=== PATIENT | female | born 1950 | race Caucasian/White ===

== ENCOUNTER → 2016-11-12 | Outpatient (CLI) | payer OTHER | LOC: BMCIMAGING 09:00 | PROVIDERS: ATTEND Internal Medicine | DX: J43.9 Emphysema, unspecified (principal) ==

== ENCOUNTER → 2016-11-26 | Outpatient (CLI) | payer OTHER | LOC: FIMAGING 11:48 | PROVIDERS: ATTEND Internal Medicine | DX: R91.8 Other nonspecific abnormal finding of lung field (principal) ==

== ENCOUNTER 2017-01-17 13:21 | Emergency (ER) | payer OTHER ==
[2017-01-17] MEDS ORDERED: predniSONE 20 MG TAB PO ONE (15:12)
--- NOTE | 2017-01-17 15:16 | EDPHY ---
H & P Time Seen by Provider: 01/17/17 14:47 HPI/ROS: CHIEF COMPLAINT: Right jaw pain HISTORY OF PRESENT ILLNESS: Patient is a 66-year-old female with a history of mixed connective tissue disorder and Raynaud syndrome who presents emergency department with right jaw pain. Patient stated her pain started 2 nights ago. "I feel like it is dental." The patient complains of pain both her lower and upper right teeth. Her dentist is out of town until Saturday. She denies any dental injury or fracture. Patient has not noticed any rash. She has no swelling or difficulty swallowing. No shortness of breath. No chest pain. No arm discomfort. She has no weakness or numbness. She denies neck pain. No recent trauma. REVIEW OF SYSTEMS: My complete review of systems is negative except as mentioned in the HPI. Past Medical/Surgical History: Includes mixed connective tissue disorder, Raynaud's syndrome Smoking Status: Former smoker Physical Exam: GENERAL: Well-appearing, in no acute distress, alert. HEENT: Eyes normal to inspection, normal pharynx, no signs of dehydration. The patient's face is symmetric. There is no right-sided swelling. No rash. No lesions. Pharynx is normal. Her right TM is normal. She has mild tenderness palpation over her right posterior lower molars. There is no fracture. No mucosal erythema. NECK: No thyromegaly, no lymphadenopathy, supple. RESPIRATORY: Clear to auscultation bilaterally, no rales, rhonchi or wheezing. CVS: Regular rate and rhythm, no rubs, murmurs, or gallops. ABDOMEN: Soft, nontender, nondistended, no organomegaly. BACK: Normal to inspection, no CVA tenderness. SKIN: Normal color, no rash, warm, dry. No pallor. EXTREMITIES: No pedal edema, no calf tenderness, no Homans sign or cords, no joint swelling. NEURO/PSYCH: Alert and oriented x3, normal mood and affect, normal motor sensory exam. No obvious cranial nerve deficit. Constitutional: Initial Vital Signs Temperature (C) 36.5 C 01/17/17 13:25 Heart Rate 83 01/17/17 13:25 Respiratory Rate 16 01/17/17 13:25 Blood Pressure 152/73 H 01/17/17 13:25 O2 Sat (%) 95 01/17/17 13:25 Allergies/Adverse Reactions: azathioprine [From Imuran] Allergy (Mild, Verified 01/17/17 13:27) Rash azathioprine sodium [From Imuran] Allergy (Mild, Verified 01/17/17 13:27) Rash Sulfa (Sulfonamide Antibiotics) Allergy (Mild, Verified 01/17/17 13:27) Rash Home Medications: Medication Instructions Recorded Ergocalciferol [Vitamin D2 (*)] 50,000 unit PO LONGORIA 10/13/15 Mycophenolate Mofetil [Cellcept] 2,000 mg PO DAILY 10/13/15 cycloSPORINE 0.05% [Restasis Opht 1 drop EACHEYE DAILY PRN 10/13/15 Drops(*)] predniSONE [Benjamin] 5 mg PO DAILY 10/13/15 Hydrocodone/Acetaminophen [Vicodin 1 each PO 01/17/17 5-300 mg Tablet] Penicillin V Potassium 500 mg PO TID 10 Days tablet 01/17/17 oxyCODONE/APAP 5/325 [Percocet 1 - 2 tab PO Q4PRN PRN #11 tab 01/17/17 5/325 (*)] predniSONE 20 mg PO DAILY 4 Days tab 01/17/17 Medical Decision Making ED Course/Re-evaluation: In the emergency department I discussed possible etiologies with the patient. I answered all her questions. At this time she will be treated with Percocet for pain control. She was instructed to take Motrin as well. She will be given prednisone to treat for possible trigeminal neuralgia. She will also be given penicillin to treat for possible dental infection. I discussed this at length with the patient. She will follow up with dentist. She was given warnings prior to leaving. She will return with worsening symptoms. Differential Diagnosis: My differential includes but is not limited to dental abscess, dental caries, trigeminal neuralgia, zoster, temporal arteritis, abscess, ACS, dissection Departure - Departure Disposition: Home, Routine, Self-Care Clinical Impression: Jaw pain Condition: Good Instructions: Toothache (ED) Additional Instructions: Return with increasing pain, numbness, weakness, headache, neck pain, rash or any other concerns. You need close follow-up with your dentist. Referrals: Som Guerrero MD [Primary Care Provider] - 2-3 days without fail Prescriptions: oxyCODONE/APAP 5/325 [Percocet 5/325 (*)] 1 - 2 tab PO Q4PRN PRN #11 tab PRN Reason: For Moderate To Severe Pain Penicillin V Potassium 500 mg PO TID 10 Days tablet predniSONE 20 mg PO DAILY 4 Days tab
[2017-01-17 15:30] VITALS: BP 142/74; PULSE 80; RESP 18; TEMP 98.2; O2SAT 96
== END 2017-01-17 15:31 | disposition home or self-care (01) ==
DX: R68.84 Jaw pain (principal); Z87.891 Personal history of nicotine dependence

== ENCOUNTER 2017-01-20 15:54 | Emergency (ER) | payer OTHER ==
--- NOTE | 2017-01-20 16:29 | EDPHY ---
H & P Stated Complaint: tooth pain Time Seen by Provider: 01/20/17 16:26 HPI/ROS: HPI: This is a 66-year-old female who presents with Chief Complaint: Top and bottom right-sided tooth pain Location: Top and bottom right side Quality: Toothache Duration: 3-4 days Signs and Symptoms: no headache, no fever, no jaw swelling, no bleeding, + sensitivity to hot and cold foods, no difficulty swallowing, no numbness, no trismus Timing: Constant Severity: 12/20 Context: Patient reports that Saturday night she woke up from sleep with top and bottom tooth pain. She was seen in this emergency room on 01/17/2017; given prednisone, Percocet, penicillin. She has been taking the medications as prescribed with relief initially. She has a history of connective tissue disease and regular sees a dentist/oral surgeon. Her dentist is currently out of town and she has an appointment on Saturday. Today she felt like how the pain in her bottom right tooth was extending into her jaw and she became concerned. Modifying Factors: See above Comment: ROS: Constitutional: No fever, no chills, no weight loss Eyes: No blurred vision Respiratory: No shortness of breath, no cough Cardiovascular: No chest pain Gastrointestinal: No nausea, no vomiting no diarrhea Genitourinary: No dysuria Extremities: No myalgias Neurologic: No weakness, no numbness Skin: No rashes Hematologic: No bruising, no bleeding Source: Patient Exam Limitations: No limitations - Personal History Current Tetanus/Diphtheria Vaccine: Yes Current Tetanus Diphtheria and Acellular Pertussis (TDAP): Yes Tetanus Vaccine Date: <5 years - Medical/Surgical History Hx Asthma: No Hx Chronic Respiratory Disease: No Hx Diabetes: No Hx Cardiac Disease: No Hx Renal Disease: No Hx Cirrhosis: No Hx Alcoholism: No Hx HIV/AIDS: No Hx Splenectomy or Spleen Trauma: No Other PMH: Raynaud's, mixed connective tissue disease - Social History Smoking Status: Former smoker - Physical Exam Exam: CONSTITUTIONAL: Elderly white female nontoxic in appearance appropriate and pleasant, awake and alert, no obvious distress HEENT: Atraumatic and normocephalic, PERRL, EOMI. Tympanic membranes clear. Oropharynx clear, pain with palpation tooth #3 and #29; no gingival erythema; no jaw swelling; no malocclusion. no exudate and moist pink mucosa. Airway patent. No lymphadenopathy. No meningismus. Cardiovascular: Normal S1/S2, regular rate, regular rhythm, without murmur rub or gallop. PULMONARY/CHEST: Symmetrical and nontender. Clear to auscultation bilaterally Good air movement. No accessory muscle usage. ABDOMEN: Soft, nondistended, nontender, no rebound, no guarding, no peritoneal signs, no masses or organomegaly. No CVAT. EXTREMITIES: 2/2 pulses, no deformities, no clubbing, no cyanosis or edema. NEUROLOGICAL: no focal neuro deficits. GCS 15. SKIN: Warm and dry, no erythema. no rash. Good capillary refill. Constitutional: Initial Vital Signs Temperature (C) 36.6 C 01/20/17 15:56 Heart Rate 72 01/20/17 15:56 Respiratory Rate 16 01/20/17 15:56 Blood Pressure 174/75 H 01/20/17 15:56 O2 Sat (%) 95 01/20/17 15:56 O2 Delivery Mode Room Air Allergies/Adverse Reactions: azathioprine [From Imuran] Allergy (Mild, Verified 01/17/17 13:27) Rash azathioprine sodium [From Imuran] Allergy (Mild, Verified 01/17/17 13:27) Rash Sulfa (Sulfonamide Antibiotics) Allergy (Mild, Verified 01/17/17 13:27) Rash Home Medications: Medication Instructions Recorded Ergocalciferol [Vitamin D2 (*)] 50,000 unit PO LONGORIA 10/13/15 Mycophenolate Mofetil [Cellcept] 2,000 mg PO DAILY 10/13/15 cycloSPORINE 0.05% [Restasis Opht 1 drop EACHEYE DAILY PRN 10/13/15 Drops(*)] predniSONE [Benjamin] 5 mg PO DAILY 10/13/15 Hydrocodone/Acetaminophen [Vicodin 1 each PO 01/17/17 5-300 mg Tablet] Penicillin V Potassium 500 mg PO TID 10 Days tablet 01/17/17 oxyCODONE/APAP 5/325 [Percocet 1 - 2 tab PO Q4PRN PRN #11 tab 01/17/17 5/325 (*)] predniSONE 20 mg PO DAILY 4 Days tab 01/17/17 oxyCODONE/APAP 5/325 [Percocet 1 tab PO Q4H PRN #10 tab 01/20/17 5/325 (*)] Medical Decision Making Procedures: Procedure: dental block Verbal consent was obtained from the patient. The mucobuccal fold of # 3 and # 29 was anesthetized in the usual fashion using 2 ml Bupivicaine for each tooth; total 4 ml anesthetic. There were no deep structures involved. Patient tolerated the procedure well with essentially immediate relief of pain. The procedure was performed by myself. ED Course/Re-evaluation: Labs, CT maxillofacial scan, dental block Creatinine 1.6 Complete relief of pain after local dental block 1758: Called by radiologist no periapical abscess; mass; lymphadenopathy Advised keep dental appointment on Saturday and complete course of antibiotics. Differential Diagnosis: Differential includes but is not limited to periapical abscess, dental carries, nerve injury. - Data Points Laboratory Results: 01/20/17 16:18 POC Hgb 13.3 gm/dL gm/dL (12.6-16.3) POC Hct 39 % % (38-47) POC Sodium 142 mEq/L mEq/L (134-144) POC Potassium 4.4 mEq/L mEq/L (3.3-5.0) POC Chloride 116 mEq/L H mEq/L (97-110) POC BUN 41 mg/dL H mg/dL (7-23) POC Creatinine 1.6 mg/dL H mg/dL (0.6-1.0) POC Glucose 91 mg/dL mg/dL (70-100) Point of Care Test Results: 01/20/17 16:18 POC Sodium 142 POC Potassium 4.4 POC Chloride 116 H POC BUN 41 H POC Creatinine 1.6 H POC Glucose 91 Departure - Departure Disposition: Home, Routine, Self-Care Clinical Impression: Odontalgia Condition: Good Instructions: Toothache (ED) Additional Instructions: Please increase fluid intake and push oral rehydration. Follow up with dentist on Saturday as previously scheduled. Referrals: Som Guerrero MD [Primary Care Provider] - As per Instructions Prescriptions: oxyCODONE/APAP 5/325 [Percocet 5/325 (*)] 1 tab PO Q4H PRN #10 tab PRN Reason: Pain, Severe
[2017-01-20] MEDS ORDERED: IOPAMIDOL (ISOVUE-300) 100 ML BTL ONE (17:05)
[2017-01-20] MEDS ORDERED: OXYCODONE/APAP 5/325MG PREPACK#4 BTL TAKEHOME ONE (18:01)
[2017-01-20 18:36] LABS: ALBUMIN 3.4 g/dL (3.5-5.0); ANION GAP 10 mEq/L (8-16); CALCIUM 9.5 mg/dL (8.5-10.4); CARBON DIOXIDE 16 mEq/l (22-31); CHLORIDE 112 mEq/L (97-110); CREATININE 1.5 mg/dL (0.6-1.0); GLOMERULAR FILTRATION RATE 35; GLUCOSE 81 mg/dL (70-100); POTASSIUM 4.5 mEq/L (3.5-5.2); SODIUM 138 mEq/L (134-144)
[2017-01-20] MEDS ORDERED: NS 1,000 ML IV ONE (18:43)
[2017-01-20 19:56] VITALS: BP 144/77; PULSE 70; RESP 16; TEMP 98.2; O2SAT 94
== END 2017-01-20 19:56 | disposition home or self-care (01) ==
PROC: 3E0337Z Introduction of Electrolytic and Water Balance Substance into Peripheral Vein, Percutaneous Approach (ICD-10-PCS; principal; 2017-01-20)
PROC: 3E0X3BZ Introduction of Anesthetic Agent into Cranial Nerves, Percutaneous Approach (ICD-10-PCS; principal; 2017-01-20)
DX: K08.89 Other specified disorders of teeth and supporting structures (principal); E86.9 Volume depletion, unspecified; Z87.891 Personal history of nicotine dependence
CPT/HCPCS: 82947-QW; Q9967

== ENCOUNTER 2017-01-21 11:35 | Emergency (ER) | payer OTHER ==
--- NOTE | 2017-01-21 11:42 | EDPHY ---
H & P Stated Complaint: 3rd visit in a wk;"antibx not working" Time Seen by Provider: 01/21/17 11:41 - Personal History Current Tetanus Diphtheria and Acellular Pertussis (TDAP): Yes Tetanus Vaccine Date: <5 years - Medical/Surgical History Hx Asthma: No Hx Chronic Respiratory Disease: No Hx Diabetes: No Hx Cardiac Disease: No Hx Renal Disease: No Hx Cirrhosis: No Hx Alcoholism: No Hx HIV/AIDS: No Hx Splenectomy or Spleen Trauma: No Other PMH: Raynaud's, mixed connective tissue disease - Social History Smoking Status: Former smoker Constitutional: Initial Vital Signs Temperature (C) 36.5 C 01/21/17 11:38 Heart Rate 88 01/21/17 11:38 Respiratory Rate 18 01/21/17 11:38 Blood Pressure 165/105 H 01/21/17 11:38 O2 Sat (%) 95 01/21/17 11:38 O2 Delivery Mode Room Air Allergies/Adverse Reactions: azathioprine [From Imuran] Allergy (Mild, Verified 01/21/17 11:37) Rash azathioprine sodium [From Imuran] Allergy (Mild, Verified 01/21/17 11:37) Rash Sulfa (Sulfonamide Antibiotics) Allergy (Mild, Verified 01/21/17 11:37) Rash Home Medications: Medication Instructions Recorded Ergocalciferol [Vitamin D2 (*)] 50,000 unit PO LONGORIA 10/13/15 Mycophenolate Mofetil [Cellcept] 2,000 mg PO DAILY 10/13/15 cycloSPORINE 0.05% [Restasis Opht 1 drop EACHEYE DAILY PRN 10/13/15 Drops(*)] predniSONE [Benjamin] 5 mg PO DAILY 10/13/15 Hydrocodone/Acetaminophen [Vicodin 1 each PO 01/17/17 5-300 mg Tablet] Penicillin V Potassium 500 mg PO TID 10 Days tablet 01/17/17 oxyCODONE/APAP 5/325 [Percocet 1 - 2 tab PO Q4PRN PRN #11 tab 01/17/17 5/325 (*)] predniSONE 20 mg PO DAILY 4 Days tab 01/17/17 oxyCODONE/APAP 5/325 [Percocet 1 tab PO Q4H PRN #10 tab 01/20/17 5/325 (*)] Amoxicillin/Clavulanate Pot 875 mg PO BID #14 tab 01/21/17 [Augmentin 875 MG TAB (*)] Ibuprofen [Motrin] 800 mg PO Q8 #20 tab 01/21/17 oxyCODONE IR [Oxycodone Ir (*)] 5 - 10 mg PO Q6 PRN #20 tab 01/21/17 Medical Decision Making ED Course/Re-evaluation: CHIEF COMPLAINT: Toothache HISTORY OF PRESENT ILLNESS: The patient is a 66-year-old female who returns to the ED with continued right sided tooth pain and acute jaw swelling. The patient was seen here 01/17/17 for this pain. She was started on Penicillin and received Oxycodone for pain. The patient was seen here yesterday for the same complaint. She had CT maxillofacial that was negative for abscess. Patient continues to take Oxycodone for pain treatment. However, this morning she noticed increased swelling of her jaw with continued tooth pain. REVIEW OF SYSTEMS: A 10 point review of systems was performed and is negative with the exception of the elements mentioned in the history of present illness. PHYSICAL EXAM: HR, BP, O2 Sat, RR. Temp noted General Appearance: Alert, well hydrated, appropriate, and non-toxic appearing. Head: Atraumatic without scalp tenderness or obvious injury Eyes: Pupils equal, round, reactive to light and accommodation, EOMI, no trauma , no injection. Ears: Clear bilaterally, no perforation, normal landmarks Nose: Atraumatic, no rhinorrhea, clear. Throat: There is no erythema or exudates, no lesions, normal tonsils, mucus membranes moist. Neck: Supple, 2+ carotid upstroke, nontender, no lymphadenopathy. Respiratory: No retractions, no distress, no wheezes, and no accessory muscle use. Lungs are clear to auscultation bilaterally. Cardiovascular: Regular rate and rhythm, no murmurs, rubs, or gallops. Bilateral carotid, radial, dorsalis pedis, and posterior tibial pulses intact. Good capillary refill all extremities. Gastrointestinal: Abdomen is soft, nontender, non-distended, no masses, no rebound, no guarding, no peritoneal signs. Musculoskeletal: Normal active ROM of all extremities, atraumatic. Neurological: Alert, appropriate, and interactive. The patient has normal DTRs and non-focal cranial nerves, motor, sensory, and cerebellar exam. Skin: No rashes, good turgor, no nodules on palpation. Past medical history: Raynaud's, Mixed connective tissue disease Past surgical history: Denies Family history: Noncontributory Social history: at bedside. DIFFERENTIAL DIAGNOSIS: The differential diagnosis for the patient's toothache includes but is not limited to dental abscess, dental caries, trigeminal neuralgia, zoster, temporal arteritis, abscess, ACS, dissection. MEDICAL DECISION MAKING: Patient I spoke to the patient's dentist, Dr. Hart. She will remove the tooth when the inflammation and infection have improved. IV was established. Patient received 900mg Clindamycin IV, 10mg Decadron IV, and 30mg Ketoralac IV. Plan to discharge patient home with Oxy IR, 800mg Motrin, and Clindamycin. Patient was instructed to followup with her Dentist when she finishes antibiotic treatment. - Data Points Medications Given: Discontinued Medications Dexamethasone (Decadron Injection) 10 mg IVP EDNOW ONE Stop: 01/21/17 11:53 Last Admin: 01/21/17 12:10 Dose: 10 mg Clindamycin Phosphate/Dextrose (Cleocin 900 Mg (Premix)) 50 mls @ 100 mls/hr IV EDNOW ONE PRN Reason: Protocol Stop: 01/21/17 12:19 Last Admin: 01/21/17 12:09 Dose: 50 mls Ketorolac Tromethamine (Toradol) 30 mg IVP EDNOW ONE Stop: 01/21/17 11:53 Last Admin: 01/21/17 12:10 Dose: 30 mg Departure - Departure Disposition: Home, Routine, Self-Care Clinical Impression: Toothache Condition: Good Instructions: Toothache (ED) Additional Instructions: Take full course of antibiotics as directed. Take Oxycodone as prescribed for severe pain. Followup with your dentist after completion of antibiotics. Referrals: Som Guerrero MD [Primary Care Provider] - As per Instructions Prescriptions: Amoxicillin/Clavulanate Pot [Augmentin 875 MG TAB (*)] 875 mg PO BID #14 tab Ibuprofen [Motrin] 800 mg PO Q8 #20 tab oxyCODONE IR [Oxycodone Ir (*)] 5 - 10 mg PO Q6 PRN #20 tab PRN Reason: Pain, Severe Report Scribed for: Juan Levin Report Scribed by: Lary Amato Date of Report: 01/21/17 Time of Report: 12:03
[2017-01-21] MEDS ORDERED: CLINDAMYCIN 900 MG/DEXTROSE 50 ML IV ONE (11:50)
[2017-01-21] MEDS ORDERED: KETOROLAC 30 MG/1 ML SDV IVP ONE (11:52)
[2017-01-21] MEDS ORDERED: DEXAMETHASONE 10 MG/ML VIAL IVP ONE (11:52)
[2017-01-21 12:33] VITALS: BP 126/65; PULSE 67; RESP 16; TEMP 97.9; O2SAT 97
== END 2017-01-21 12:44 | disposition home or self-care (01) ==
DX: K08.89 Other specified disorders of teeth and supporting structures (principal); Z87.891 Personal history of nicotine dependence
CPT/HCPCS: 96365; J1100; J1885

== ENCOUNTER 2017-01-23 21:00 | Inpatient (IN) | payer OTHER ==
[2017-01-23] MEDS ORDERED: NS 1,000 ML IV ONE (21:55)
--- NOTE | 2017-01-23 21:56 | EDPHY ---
H & P Stated Complaint: right sided jaw swelling Time Seen by Provider: 01/23/17 21:43 HPI/ROS: Chief Complaint: Jaw pain and swelling HPI: 66-year-old woman who is been having over a week of right-sided jaw pain and swelling. She has been seen in the emergency department by dental multiple times for this. Patient had a CT scan on the which did not show evidence of an abscess at that time. Patient was initially started on penicillin but was switched to clindamycin 2 days ago. She received an IV dose of clindamycin has been taking it orally. Patient's follow up with her dentist that day with the plan to from root canal after the swelling goes down. Patient states that over the course of the last 2 days the swelling has gotten worse. The swelling is crossing the midline of her jaw and is increasing swelling beneath her the jaws well. Has some pain with opening. She has not had any relief with her oral pain medications at home. Some pain with swallowing on the right. No difficulty breathing. ROS: 10 point Review of Systems is negative except as noted in the HPI. PMH: Mixed connective tissue disease Social History: No smoking, no alcohol, no recreational drug use Family History: non-contributory Physical Exam: Gen: Awake, Alert, No Distress HEENT: Nose: no rhinorrhea Eyes: PERRLA, EOMI Mouth: Moist mucosa she has significant submandibular swelling on the right which crosses the midline. There is no fluctuance. It does not extend to the neck. Intraorally there is noted swelling at the base of her tongue with perhaps some mild fluctuance. She has no trismus. Uvula is midline. Oropharynx appears normal. Neck: Supple, no JVD, no swelling Chest: nontender, no respiratory distress Heart: Normal pulses Abd: Normal inspection Ext: no edema, non-tender Skin: no rash Neuro: CN II-XII intact, Sensation grossly intact, Strength 5/5 in bilateral upper and lower extremities - Personal History Current Tetanus Diphtheria and Acellular Pertussis (TDAP): Yes Tetanus Vaccine Date: <5 years - Medical/Surgical History Hx Asthma: No Hx Chronic Respiratory Disease: No Hx Diabetes: No Hx Cardiac Disease: No Hx Renal Disease: No Hx Cirrhosis: No Hx Alcoholism: No Hx HIV/AIDS: No Hx Splenectomy or Spleen Trauma: No Other PMH: Raynaud's, mixed connective tissue disease - Social History Smoking Status: Former smoker Constitutional: Initial Vital Signs Temperature (C) 37 C 01/23/17 21:04 Heart Rate 60 01/23/17 21:04 Respiratory Rate 16 01/23/17 21:04 Blood Pressure 99/60 L 01/23/17 21:04 O2 Sat (%) 97 01/23/17 21:04 O2 Delivery Mode Room Air Allergies/Adverse Reactions: azathioprine [From Imuran] Allergy (Mild, Verified 01/21/17 11:37) Rash azathioprine sodium [From Imuran] Allergy (Mild, Verified 01/21/17 11:37) Rash Sulfa (Sulfonamide Antibiotics) Allergy (Mild, Verified 01/21/17 11:37) Rash Home Medications: Medication Instructions Recorded Ergocalciferol [Vitamin D2 (*)] 50,000 unit PO LONGORIA 10/13/15 Mycophenolate Mofetil [Cellcept] 2,000 mg PO DAILY 10/13/15 cycloSPORINE 0.05% [Restasis Opht 1 drop EACHEYE DAILY PRN 10/13/15 Drops(*)] predniSONE [Benjamin] 5 mg PO DAILY 10/13/15 Hydrocodone/Acetaminophen [Vicodin 1 each PO 01/17/17 5-300 mg Tablet] Penicillin V Potassium 500 mg PO TID 10 Days tablet 01/17/17 oxyCODONE/APAP 5/325 [Percocet 1 - 2 tab PO Q4PRN PRN #11 tab 01/17/17 5/325 (*)] predniSONE 20 mg PO DAILY 4 Days tab 01/17/17 oxyCODONE/APAP 5/325 [Percocet 1 tab PO Q4H PRN #10 tab 01/20/17 5/325 (*)] Amoxicillin/Clavulanate Pot 875 mg PO BID #14 tab 01/21/17 [Augmentin 875 MG TAB (*)] Clindamycin 150 mg PO Q8 #30 cap 01/21/17 Ibuprofen [Motrin] 800 mg PO Q8 #20 tab 01/21/17 oxyCODONE IR [Oxycodone Ir (*)] 5 - 10 mg PO Q6 PRN #20 tab 01/21/17 Medical Decision Making - Diagnostics Imaging Results: Imaging Impressions Face CT 01/23/17 22:41 Impression: 1. Subperiosteal abscess along the inner cortex of the right mandibular body insinuates into the right geniohyoid hyoid muscle anteriorly. 2. No involvement of the deep spaces of the neck or compromise of the airway. 3. No evidence of osteomyelitis. Findings discussed with Emergency Department physician, Jakob Noriega MD at 01/23/2017 23:45. CT scan shows a subperiosteal submandibular abscess measuring 0.6 cm x 1.5 cm x 2 cm. Scan interpreted by Dr. Lynn. Imaging: Discussed imaging studies w/ call center operations manager Radiologist ED Course/Re-evaluation: CT scan reveals submandibular abscess. There is no airway involvement at this time. I have discussed with Dr. Delarosa, oral surgery. She is requesting the patient be admitted to medicine service. She will plan on surgical drainage in the morning. She is requesting IV Unasyn at this time. Case discussed with Dr. Bergman. He will admit to his service for further care. - Data Points Laboratory Results: Laboratory Results 01/23/17 22:10 01/23/17 22:10 01/23/17 01/23/17 22:10 22:10 WBC 15.14 10^3/uL H 10^3/uL (3.80-9.50) RBC 4.38 10^6/uL 10^6/uL (4.18-5.33) Hgb 13.2 g/dL g/dL (12.6-16.3) Hct 40.2 % % (38.0-47.0) MCV 91.8 fL fL (81.5-99.8) MCH 30.1 pg pg (27.9-34.1) MCHC 32.8 g/dL g/dL (32.4-36.7) RDW 14.8 % % (11.5-15.2) Plt Count 165 10^3/uL 10^3/uL (150-400) MPV 10.4 fL fL (8.7-11.7) Neut % (Auto) 89.7 % H % (39.3-74.2) Lymph % (Auto) 3.8 % L % (15.0-45.0) Wagoner % (Auto) 4.8 % % (4.5-13.0) Eos % (Auto) 0.3 % L % (0.6-7.6) Baso % (Auto) 0.3 % % (0.3-1.7) Nucleat RBC Rel Count 0.0 % % (0.0-0.2) Absolute Neuts (auto) 13.59 10^3/uL H 10^3/uL (1.70-6.50) Absolute Lymphs (auto) 0.57 10^3/uL L 10^3/uL (1.00-3.00) Absolute Monos (auto) 0.73 10^3/uL 10^3/uL (0.30-0.80) Absolute Eos (auto) 0.05 10^3/uL 10^3/uL (0.03-0.40) Absolute Basos (auto) 0.04 10^3/uL 10^3/uL (0.02-0.10) Absolute Nucleated RBC 0.00 10^3/uL 10^3/uL (0-0.01) Immature Gran % 1.1 % % (0.0-1.1) Immature Gran # 0.16 10^3/uL H 10^3/uL (0.00-0.10) Sodium 135 mEq/L mEq/L (134-144) Potassium 3.8 mEq/L mEq/L (3.5-5.2) Chloride 109 mEq/L mEq/L (97-110) Carbon Dioxide 12 mEq/l L mEq/l (22-31) Anion Gap 14 mEq/L mEq/L (8-16) BUN 36 mg/dL H mg/dL (7-23) Creatinine 1.7 mg/dL H mg/dL (0.6-1.0) Estimated GFR 30 Glucose 77 mg/dL mg/dL (70-100) Calcium 10.2 mg/dL mg/dL (8.5-10.4) Total Bilirubin 0.9 mg/dL mg/dL (0.1-1.4) AST 42 IU/L IU/L (14-46) ALT 49 IU/L IU/L (9-52) Alkaline Phosphatase 175 IU/L H IU/L (38-126) Total Protein 7.8 g/dL g/dL (6.3-8.2) Albumin 3.7 g/dL g/dL (3.5-5.0) Medications Given: Discontinued Medications Sodium Chloride (Ns) 1,000 mls @ 0 mls/hr IV ONCE ONE; Wide Open PRN Reason: Protocol Stop: 01/23/17 21:56 Last Admin: 01/23/17 22:05 Dose: 1,000 mls Morphine Sulfate (Morphine) 4 mg IVP ONCE ONE Stop: 01/23/17 22:18 Last Admin: 01/24/17 00:11 Dose: 4 mg Departure - Departure Disposition: [facility] Inpatient Acute Clinical Impression: Submandibular abscess Condition: Fair Referrals: Som Guerrero MD [Primary Care Provider] - As per Instructions
[2017-01-23 22:28] LABS: % IMMATURE GRANULYOCYTES 1.1 % (0.0-1.1); ABSOLUTE IMMATURE GRANULOCYTES 0.16 10^3/uL (0.00-0.10); ADD DIFF? NO; ADD MORPH? NO; ADD SCAN? NO; ATYPICAL LYMPHOCYTE FLAG 0 (0-99); FRAGMENT RBC FLAG 0 (0-99); HEMATOCRIT 40.2 % (38.0-47.0); HEMOGLOBIN 13.2 g/dL (12.6-16.3); LEFT SHIFT FLG 20 (0-99); LIPEMIA HEMOLYSIS FLAG 80 (0-99); MEAN CELL HEMOGLOBIN 30.1 pg (27.9-34.1); MEAN CELL HEMOGLOBIN CONCENTR. 32.8 g/dL (32.4-36.7); MEAN CELL VOLUME 91.8 fL (81.5-99.8); MEAN PLATELET VOLUME 10.4 fL (8.7-11.7); PLATELET CLUMPS FLAG 10 (0-99); PLATELET COUNT 165 10^3/uL (150-400); RED BLOOD CELL COUNT 4.38 10^6/uL (4.18-5.33); RED CELL DISTRIBUTION WIDTH 14.8 % (11.5-15.2)
[2017-01-23 22:39] LABS: ALANINE AMINOTRANSFERASE 49 IU/L (9-52); ALBUMIN 3.7 g/dL (3.5-5.0); ALKALINE PHOSPHATASE 175 IU/L (38-126); ANION GAP 14 mEq/L (8-16); ASPARTATE AMINOTRANSFERASE 42 IU/L (14-46); BILIRUBIN,TOTAL 0.9 mg/dL (0.1-1.4); CALCIUM 10.2 mg/dL (8.5-10.4); CARBON DIOXIDE 12 mEq/l (22-31); CHLORIDE 109 mEq/L (97-110); CREATININE 1.7 mg/dL (0.6-1.0); GLOMERULAR FILTRATION RATE 30; GLUCOSE 77 mg/dL (70-100); POTASSIUM 3.8 mEq/L (3.5-5.2); SODIUM 135 mEq/L (134-144); TOTAL PROTEIN 7.8 g/dL (6.3-8.2)
[2017-01-23] MEDS ORDERED: IOPAMIDOL (ISOVUE-300) 100 ML BTL ONE (22:57)
[2017-01-23] MEDS ORDERED: AMPICILLIN/SULBACTAM 3 GM in NS 100 ML IV ONE (23:52)
[2017-01-24] MEDS ORDERED: ACETAMINOPHEN 325 MG TAB PO PRN (00:41)
[2017-01-24] MEDS ORDERED: ONDANSETRON DISINTEGRATING 4 MG TAB PO PRN (00:41)
[2017-01-24] MEDS ORDERED: ONDANSETRON 4 MG/2 ML VIAL IVP PRN ×2 (00:41→15:07)
--- NOTE | 2017-01-24 00:52 | PDGENHP ---
History and Physical - Chief Complaint Jaw pain - History of Present Illness 66 yo F w/ hx of mixed CTD presents with 1 week of lower mandibular pain. Patient first noticed pain in her right mandible about 1 week ago. She has been seen in the ED a few times for this and has received PO abx (Clindamycin, Augmentin) without improvement. She returned to the ED today for worsening pain and chills. At the time of my evaluation patient was in severe pain and exhibiting rigors. History Information - Allergies/Home Medication List Allergies/Adverse Reactions: azathioprine [From Imuran] Allergy (Mild, Verified 01/21/17 11:37) Rash azathioprine sodium [From Imuran] Allergy (Mild, Verified 01/21/17 11:37) Rash Sulfa (Sulfonamide Antibiotics) Allergy (Mild, Verified 01/21/17 11:37) Rash Home Medications: Ergocalciferol [Vitamin D2 (*)] 50,000 unit PO LONGORIA 10/13/15 [Last Taken 10/16/15] Mycophenolate Mofetil [Cellcept] 2,000 mg PO DAILY 10/13/15 [Last Taken 10/19/15 ] cycloSPORINE 0.05% [Restasis Opht Drops(*)] 1 drop EACHEYE DAILY PRN 10/13/15 [ Last Taken Unknown] predniSONE [Benjamin] 5 mg PO DAILY 10/13/15 [Last Taken 10/20/15] Hydrocodone/Acetaminophen [Vicodin 5-300 mg Tablet] 1 each PO 01/17/17 [Last Taken Unknown] I have personally reviewed and updated: family history, medical history - Past Medical History Additional medical history: Mixed CTD - Family History Positive for: cancer - Social History Smoking Status: Former smoker Drug Use: None Review of Systems Review of Systems: ROS: 10pt was reviewed & negative except for what was stated in HPI & below Physical Exam Physical Exam: Temp Pulse Resp BP Pulse Ox 37 C 60 16 99/60 L 97 01/23/17 21:04 01/23/17 21:04 01/23/17 21:04 01/23/17 21:04 01/23/17 21:04 Constitutional: appears nourished, uncomfortable Eyes: PERRL, EOMI Ears, Nose, Mouth, Throat: moist mucous membranes, other (Mild swelling overlying R sub-mandibular area) Cardiovascular: regular rate and rhythym, no murmur, rub, or gallop Respiratory: no respiratory distress, clear to auscultation Gastrointestinal: normoactive bowel sounds, soft, non-tender abdomen Skin: warm, normal color Musculoskeletal: full muscle strength, no muscle tenderness Neurologic: AAOx3, CN II-XII Intact Psychiatric: interacting appropriately, not anxious Lab Data & Imaging Review 01/23/17 22:10 01/23/17 22:10 WBC 15.14 10^3/uL (3.80-9.50) H 01/23/17 22:10 RBC 4.38 10^6/uL (4.18-5.33) 01/23/17 22:10 Hgb 13.2 g/dL (12.6-16.3) 01/23/17 22:10 Hct 40.2 % (38.0-47.0) 01/23/17 22:10 MCV 91.8 fL (81.5-99.8) 01/23/17 22:10 MCH 30.1 pg (27.9-34.1) 01/23/17 22:10 MCHC 32.8 g/dL (32.4-36.7) 01/23/17 22:10 RDW 14.8 % (11.5-15.2) 01/23/17 22:10 Plt Count 165 10^3/uL (150-400) 01/23/17 22:10 MPV 10.4 fL (8.7-11.7) 01/23/17 22:10 Neut % (Auto) 89.7 % (39.3-74.2) H 01/23/17 22:10 Lymph % (Auto) 3.8 % (15.0-45.0) L 01/23/17 22:10 Guadalupe % (Auto) 4.8 % (4.5-13.0) 01/23/17 22:10 Eos % (Auto) 0.3 % (0.6-7.6) L 01/23/17 22:10 Baso % (Auto) 0.3 % (0.3-1.7) 01/23/17 22:10 Nucleat RBC Rel Count 0.0 % (0.0-0.2) 01/23/17 22:10 Absolute Neuts (auto) 13.59 10^3/uL (1.70-6.50) H 01/23/17 22:10 Absolute Lymphs (auto) 0.57 10^3/uL (1.00-3.00) L 01/23/17 22:10 Absolute Monos (auto) 0.73 10^3/uL (0.30-0.80) 01/23/17 22:10 Absolute Eos (auto) 0.05 10^3/uL (0.03-0.40) 01/23/17 22:10 Absolute Basos (auto) 0.04 10^3/uL (0.02-0.10) 01/23/17 22:10 Absolute Nucleated RBC 0.00 10^3/uL (0-0.01) 01/23/17 22:10 Immature Gran % 1.1 % (0.0-1.1) 01/23/17 22:10 Immature Gran # 0.16 10^3/uL (0.00-0.10) H 01/23/17 22:10 Sodium 135 mEq/L (134-144) 01/23/17 22:10 Potassium 3.8 mEq/L (3.5-5.2) 01/23/17 22:10 Chloride 109 mEq/L (97-110) 01/23/17 22:10 Carbon Dioxide 12 mEq/l (22-31) L 01/23/17 22:10 Anion Gap 14 mEq/L (8-16) 01/23/17 22:10 BUN 36 mg/dL (7-23) H 01/23/17 22:10 Creatinine 1.7 mg/dL (0.6-1.0) H 01/23/17 22:10 Estimated GFR 30 01/23/17 22:10 Glucose 77 mg/dL (70-100) 01/23/17 22:10 Calcium 10.2 mg/dL (8.5-10.4) 01/23/17 22:10 Total Bilirubin 0.9 mg/dL (0.1-1.4) 01/23/17 22:10 AST 42 IU/L (14-46) 01/23/17 22:10 ALT 49 IU/L (9-52) 01/23/17 22:10 Alkaline Phosphatase 175 IU/L (38-126) H 01/23/17 22:10 Total Protein 7.8 g/dL (6.3-8.2) 01/23/17 22:10 Albumin 3.7 g/dL (3.5-5.0) 01/23/17 22:10 Imaging Review: CT face with sub-mandibular abscess, no involvement of deep spaces or airway. Assessment & Plan Assessment: 66 yo F w/ mixed-CTD presents with sub-mandibular abscess. Plan: 1. Mandibular abscess - Likely originating from tooth infection. Progressing despite oral antibiotics and therefore requiring admission of IV antibiotics and drainage. - Oral surgery consulted, will plan for I&D tomorrow; maintain NPO - Unasyn IV 3g q8h (adjusted interval for renal dysfunction) - Oxycodone and morphine PRN for pain control 2. Mixed-CTD - Takes Cellcept and prednisone 2m qD for this. Noting such low dose (no recent hx of high dose steroids), no need for stress dosing at this time. 3. CKD - Cr 1.7, very near baseline of ~1.5. Avoid nephrotoxins and renally dose medications. Diet - NPO Ppx - SCDs Code - Full Dispo - Admit to inpatient status noting need for I&D, IV abx, and pain control
--- NOTE | 2017-01-24 00:56 | CPEKG ---
Heart Rate: 122 RR Interval: 492 P-R Interval: 156 QRSD Interval: 70 QT Interval: 256 QTC Interval: 365 P Magazine: 64 QRS Magazine: 37 T Wave Magazine: -69 EKG Severity - BORDERLINE ECG - EKG Impression: SINUS TACHYCARDIA EKG Impression: PROBABLE LEFT ATRIAL ABNORMALITY Electronically Signed By: Jakob Noriega 24-Jan-2017 05:25:48
[2017-01-24] MEDS ORDERED: NS 1,000 ML IV ONE ×3 (01:15→10:30)
[2017-01-24] MEDS: oxyCODONE IR 5 MG TAB PO PRN (01:16)
[2017-01-24] MEDS: AMPICILLIN/SULBACTAM 3 GM in NS 100 ML IV SCH ×3 (05:23→22:15)
[2017-01-24 05:54] LABS: % IMMATURE GRANULYOCYTES 1.4 % (0.0-1.1); ABSOLUTE IMMATURE GRANULOCYTES 0.27 10^3/uL (0.00-0.10); ADD DIFF? NO; ADD MORPH? NO; ADD SCAN? YES; ATYPICAL LYMPHOCYTE FLAG 0 (0-99); FRAGMENT RBC FLAG 0 (0-99); HEMATOCRIT 30.1 % (38.0-47.0); HEMOGLOBIN 9.9 g/dL (12.6-16.3); LEFT SHIFT FLG 220 (0-99); LIPEMIA HEMOLYSIS FLAG 80 (0-99); MEAN CELL HEMOGLOBIN 30.4 pg (27.9-34.1); MEAN CELL HEMOGLOBIN CONCENTR. 32.9 g/dL (32.4-36.7); MEAN CELL VOLUME 92.3 fL (81.5-99.8); MEAN PLATELET VOLUME 10.8 fL (8.7-11.7); PLATELET CLUMPS FLAG 0 (0-99); PLATELET COUNT 130 10^3/uL (150-400); RED BLOOD CELL COUNT 3.26 10^6/uL (4.18-5.33); RED CELL DISTRIBUTION WIDTH 14.9 % (11.5-15.2)
[2017-01-24 06:02] LABS: ANION GAP 13 mEq/L (8-16); CALCIUM 8.1 mg/dL (8.5-10.4); CARBON DIOXIDE 10 mEq/l (22-31); CHLORIDE 118 mEq/L (97-110); CREATININE 1.6 mg/dL (0.6-1.0); GLOMERULAR FILTRATION RATE 32; GLUCOSE 64 mg/dL (70-100); POTASSIUM 3.5 mEq/L (3.5-5.2); SODIUM 141 mEq/L (134-144)
[2017-01-24] MEDS ORDERED: D50W 25 GM/50 ML SYR IVP PRN (06:14)
[2017-01-24 06:24] LABS: SCAN NEGATIVE
--- NOTE | 2017-01-24 09:47 | GCON ---
[f rep st] DIRECTOR OF FINANCIAL REPORTING CONSULTATION DATE OF CONSULTATION: 01/24/2017 HISTORY OF PRESENT ILLNESS: The patient is a 66-year-old female who has presented to the ED several times over the last week with ongoing right lower jaw pain and swelling. In between her visits her dentist recommended a root canal on tooth #30 after the infection cleared. She has been on PCN and clindamycin. Last night she presented again with worsening swelling; a scan demonstrated a submandibular abscess. OMFS was consulted for surgical intervention. PAST MEDICAL HISTORY: Mixed connective tissue disease. MEDICATIONS: Vitamin D2, MMF, cyclosporine eye drops, prednisone 5 mg daily, and hydrocodone p.r.n. pain. ALLERGIES: Azathioprine and sulfa. FAMILY HISTORY: Brother recently from leukemia, parents from lung cancer. SURGICAL HISTORY: Appendectomy at age 16. No anesthetic complications. SOCIAL HISTORY: Denies tobacco, alcohol, and illicit drug use. Lives in [place] with her . REVIEW OF SYSTEMS: A 10-point review of systems was reviewed and was significant for chills, fever, and lower back pain x 1 day. PHYSICAL EXAMINATION: VITAL SIGNS: BP 82/47, HR 85, RR 17, O2 sat 97% on 2L O2 via nasal cannula, temperature 36.6. GENERAL: Patient was resting comfortably in bed. No acute distress. HEENT: Moderate right lower facial and submandibular induration and edema, moderately erythematous with mild tenderness to palpation. Induration and edema measures approximately 6.5 cm. DOROTEO is 30 mm with mild discomfort. Patient has partial edentulism with right mandibular vestibular edema, mild right floor of mouth elevation. Mallampati 2. Percussion tenderness to #29 and #30. No dental mobility. No mucosal or gingival lesions otherwise noted, CN II-XII grossly intact. LABORATORY DATA: Leukocytosis to 19. CT: Fluid collection in the right submandibular region. Dental periapical film submitted to Dr. Delarosa's office from Dr. Lai's (dentist) demonstrates a radiolucency with #30 mesial root and furcation involvement. ASSESSMENT AND PLAN: Odontogenic infection #30 with an associated right submandibular space abscess. Recommend extraction of #30, I&D, cultures, placement of intraoral/extraoral drains under GA Discussed findings with pt, questions addressed NPO/MIVF today; OR case scheduled for 2:30 pm today. continue Unasyn analgesics prn likely pt will remain admitted over the weekend /[id number]/MODL MTDD
[2017-01-24] MEDS ORDERED: HYDROCORTISONE 100 MG/2 ML VIAL IVP ONE (10:14)
[2017-01-24] MEDS ORDERED: NS 1,000 ML IV SCH (10:30)
[2017-01-24] MEDS ORDERED: PILOCARPINE HCL 5 MG TAB PO PRN (11:20)
[2017-01-24] MEDS ORDERED: IBUPROFEN 800 MG TAB PO PRN (11:20)
--- NOTE | 2017-01-24 12:47 | GCON ---
[f rep st] CONSULTATION INFECTIOUS DISEASES CONSULTATION DATE OF CONSULTATION: 01/24/2017 REFERRING PHYSICIAN: Sarah Clark NP REASON FOR CONSULTATION: Submandibular abscess. HISTORY OF PRESENT ILLNESS: Patient is a 66-year-old female with a past medical history of mixed con nective tissue disease including Sjogren's disease and scleroderma features, who I am asked to see in consultation for a right-sided submandibular abscess. Patient describes developing dental pain appr oximately 2 weeks ago in the lower right jaw. This subsequently became more prominent and she was se en in the emergency department beginning on 01/17/2017. At that point in time, she was started on pe nicillin with plans for outpatient followup with her dentist. Followup was complicated by her dentis t being out of town. She subsequently returned to the emergency department on 01/20/2017 with persis tent symptoms, at which point in time a facial CT was performed. This did not show evidence of subma ndibular abscess. Physical examination at that point did not note any jaw swelling. She was treated with a dental block and continued on penicillin. However, she continued to be symptomatic and devel oped progressive pain with associated erythema and swelling below her jaw. This prompted repeat eval uation in the emergency department, at which point in time she was given clindamycin, Decadron, and T oradol IV. Her antibiotic therapy was changed to clindamycin. Plans were to follow up with her dent ist for definitive management. In the interim, the patient did not have improvement despite antibiot ic therapy and had continued pain, prompting [facility] in [facility] a repeat CT scan was performed which showed evidence of a submandibular abscess. This measured 2 cm x 0.6 cm x 1.5 cm. Deep spaces were noted to be preserved with no airway compromi se. Patient has been started empirically on Unasyn. She was seen by Oral Surgery earlier today with plans for dental extraction and abscess drainage later today. Patient did have fever to 39.6 after admission, with associated rigors. She does not describe having fever and chills prior to this. Blo od cultures have been obtained and are currently pending. Patient does not note any difficulty openi ng her mouth beyond what is associated with her typical scleroderma features. She does have chronic dry mouth. She has not noted any change in her voice, difficulty with tongue movement or tongue swel ling. She now does note that she has erythema and swelling over the entirety of her lower jaw. She has not noted any pain in her upper chest. Given the above findings, I am now asked to assist in her ongoing management. PAST MEDICAL HISTORY: Mixed connective tissue disease manifest by Sjogren's and scleroderma-like fea tures as well as autoimmune hepatitis, vitamin D deficiency, chronic renal insufficiency. PAST SURGICAL HISTORY: Appendectomy. CURRENT MEDICATIONS: Unasyn 3 g IV q.8 hours, vitamin D2 50,000 units p.o. weekly, CellCept 2000 mg p.o. daily, prednisone 2.5 mg p.o. daily, pilocarpine 5 mg p.o. t.i.d., OxyIR and Percocet as needed for pain. ALLERGIES: Sulfonamides associated with rash; azathioprine; another antibiotic which she cannot mitchell mber currently, associated with GI symptoms. SOCIAL HISTORY: Patient does not smoke or drink significant alcohol. No drug use history. FAMILY HISTORY: Parents of lung cancer associated with smoking, brother recently of leukem ia. REVIEW OF SYSTEMS: Outside that noted in the HPI, the remainder of the 10-system review is unremarka ble; patient has had hypotension since admission with plans to initiate stress dose steroids. Unless otherwise noted, the remainder of 10-system review is unremarkable. PHYSICAL EXAMINATION: VITAL SIGNS: Temperature maximum 39.6, temperature current 36.8, heart rate 7 6, respiratory rate 18, blood pressure 87/43. GENERAL: Patient is a thin female in no acute distres s. She appears nontoxic. HEENT: There is no scleral icterus, conjunctival injection, or conjunctiv al petechiae. The oropharynx shows scleroderma-type facies. There is no trismus. There is no nasal discharge. There is no tenderness over the sinuses. There is erythema, edema and tenderness over t he right mandibular region extending into the submental region with an area of palpable fluctuance be low the jaw. Patient's tongue moves freely and there is no tongue edema. NECK: Supple without palp able lymphadenopathy. Patient does have erythema on the right side of the neck extending into the up per chest and some erythema over the left side of the anterior neck. CHEST: Clear to auscultation b ilaterally without adventitious sounds. The respiratory effort is normal. CARDIOVASCULAR: Regular rate and rhythm without murmurs, gallops, or rubs. ABDOMEN: Soft, nontender, nondistended. There i s no palpable organomegaly. Bowel sounds are present. MUSCULOSKELETAL: There is no cyanosis, clubb ing, or edema. SKIN: See HEENT exam. There are no stigmata of endocarditis. The skin is warm and dry to touch. NEUROLOGIC: Patient is alert and interacts appropriately with examiner. Cranial nerv es 2-12 are grossly intact. Sensation is grossly intact. Muscle tone and bulk are normal. LABORATORY DATA: White blood cell count 19.1, hematocrit 30.1, platelets 130, neutrophils 87%. Seru m creatinine is 1.6, AST 42, ALT 49, bilirubin 0.9, alkaline phosphatase 175. Venous lactate is 0.7. IMPRESSION: 1. Sepsis due to submandibular abscess of odontogenic etiology: Clinical and radiographic findings consistent with submandibular abscess related to odontogenic infection. Plans for incision and drain age of abscess and dental extraction later today. Most likely, this will be related to odontogenic f taylor. Current antibiotic therapy with ampicillin/sulbactam provides excellent activity against odont ogenic pathogens. 2. Hypotension: Possibly this is related to adrenal insufficiency with chronic steroid use. Stress dose steroids have been initiated. Venous lactate is normal. RECOMMENDATIONS: 1. Agree with Unasyn 3 g IV q.8 hours. 2. Agree with plans for surgical incision and drainage and dental extraction. 3. Follow up blood cultures as available given presence of rigors which could be indicative of super imposed bacteremia. 4. Follow up culture data as available. 5. Follow clinical response to above measures. Thank you for this consultation. We will continue to follow the patient with you. /[id number]/MODL
[2017-01-24] MEDS ORDERED: BUPIVACAINE 0.5% 30 ML SDV ONE (13:13)
[2017-01-24] MEDS ORDERED: CHLORHEXIDINE GLUCONATE 15 ML UDL ONE (13:14)
--- NOTE | 2017-01-24 13:54 | HOSPPROG ---
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 Plan: 1. Mandibular abscess - Likely originating from tooth infection. Progressing despite oral antibiotics and therefore requiring admission of IV antibiotics and drainage. Consulted ID. D/W Dr Peres - Oral surgery consulted, will plan for I&D today; maintain NPO - Unasyn IV 3g q8h (adjusted interval for renal dysfunction) - Oxycodone and morphine PRN for pain control 2. Mixed-CTD - Takes Cellcept and prednisone 2m qD for this. Noting such low dose (no recent hx of high dose steroids), will stress dose, hydro 100mg IV once. 3. CKD - Cr 1.7, very near baseline of ~1.5. Avoid nephrotoxins and renally dose medications. 4. Hypotension stress does IVF recheck lactate Diet - NPO Ppx - SCDs Code - Full Dispo - Admit to inpatient status noting need for I&D, IV abx, and pain control Subjective: Feeling ok. Objective: Vital Signs Temp Pulse Resp BP Pulse Ox 36.8 C 80 16 92/52 L 99 01/24/17 11:41 01/24/17 11:41 01/24/17 11:41 01/24/17 11:41 01/24/17 11:41 Laboratory Results 01/24/17 04:49 01/24/17 04:49 01/23/17 01/24/17 01/25/17 05:59 05:59 05:59 Intake Total 1100 Balance 1100 - Physical Exam Constitutional: no apparent distress, appears nourished Eyes: PERRL, anicteric sclera Ears, Nose, Mouth, Throat: moist mucous membranes, hearing normal Cardiovascular: regular rate and rhythym, No JVD Respiratory: no respiratory distress, reduced air movement Gastrointestinal: No tenderness, No ascites Skin: warm, normal color Musculoskeletal: no joint effusions, generalized weakness Neurologic: AAOx3 Psychiatric: interacting appropriately, not anxious, not encephalopathic ICD10 Worksheet Patient Problems: Problems Problem Status Onset Hypokalemia Acute Dyspnea Acute Renal insufficiency Acute Submandibular abscess Acute
[2017-01-24] MEDS ORDERED: LIDOCAINE 1% 2 ML INJ ID PRN (14:02)
[2017-01-24] MEDS ORDERED: LR 1,000 ML IV ONE (14:02)
--- NOTE | 2017-01-24 14:14 | PDANEPAE ---
ANE History of Present Illness mandibular abscess ANE Past Medical History - Pulmonary History Hx Oxygen in Use at Home: No Hx Sleep Apnea: No Sleep Apnea Screening Result - Last Documented: Negative - Endocrine History Hx Diabetes: No - Chronic Pain History Chronic Pain: Yes ANE Review of Systems Review of Systems: ANE Patient History - Allergies Allergies/Adverse Reactions: azathioprine [From Imuran] Allergy (Mild, Verified 01/21/17 11:37) Rash azathioprine sodium [From Imuran] Allergy (Mild, Verified 01/21/17 11:37) Rash Sulfa (Sulfonamide Antibiotics) Allergy (Mild, Verified 01/21/17 11:37) Rash amoxicillin [From Augmentin] Allergy (Verified 01/24/17 12:26) clavulanic acid [From Augmentin] Allergy (Verified 01/24/17 12:26) - Home Medications Home Medications: Ergocalciferol [Vitamin D2 (*)] 50,000 unit PO LONGORIA 10/13/15 [Last Taken 01/20/17] Mycophenolate Mofetil [Cellcept] 2,000 mg PO DAILY 10/13/15 [Last Taken 01/23/17 ] Clindamycin 150 mg PO QID 01/24/17 [Last Taken 01/23/17 22:00] Ibuprofen [Motrin (*)] 800 mg PO Q8HRS PRN 01/24/17 [Last Taken 01/23/17] Pilocarpine HCl [Salagen 5mg (*)] 5 mg PO TID PRN 01/24/17 [Last Taken Unknown] predniSONE 2.5 mg PO DAILY 01/24/17 [Last Taken 01/23/17] - NPO status NPO Since - Liquids (Date): 01/23/17 NPO Since - Solids (Date): 01/23/17 - Smoking Hx Smoking Status: Former smoker ANE Labs/Vital Signs - Labs Result Diagrams: 01/24/17 04:49 01/24/17 04:49 - Vital Signs Blood Pressure: 92/52 Heart Rate: 80 Respiratory Rate: 16 O2 Sat (%): 99 Height: 172.72 cm Weight: 56.699 kg ANE Physical Exam - Airway Neck exam: FROM Mallampati Score: Class 2 Mouth exam: poor dentition, small mouth opening - Pulmonary Pulmonary: no respiratory distress - Cardiovascular Cardiovascular: regular rate and rhythym - ASA Status ASA Status: III, E ANE Anesthesia Plan Anesthesia Plan: general endotracheal anesthesia
[2017-01-24] MEDS ORDERED: ROCURONIUM 50 MG/5 ML VIAL ONE (14:22)
[2017-01-24] MEDS ORDERED: fentaNYL 100 MCG/2 ML INJ ONE ×2 (14:22→16:11)
[2017-01-24] MEDS ORDERED: ONDANSETRON 4 MG/2 ML VIAL ONE (14:22)
[2017-01-24] MEDS ORDERED: PROPOFOL 200 MG/20 ML VIAL ONE (14:23)
[2017-01-24] MEDS ORDERED: fentaNYL 100 MCG/2 ML INJ IVP PRN (15:07)
[2017-01-24] MEDS ORDERED: HYDROmorphONE/DILAUDID 1 MG/ML INJ IVP PRN (15:07)
[2017-01-24] MEDS ORDERED: NALOXONE HCL 0.4 MG/ML INJ IVP PRN (15:07)
[2017-01-24] MEDS ORDERED: PROMETHAZINE HCL 25 MG/ML INJ IVP PRN (15:07)
--- NOTE | 2017-01-24 15:33 | POSTANESTH ---
Post Anesthetic Evaluation Cardiovascular Status: Normal, Stable Respiratory Status: Normal, Stable Level of Consciousness/Mental Status: Can Participate in Eval Pain Control: Adequate, Prn Tx Ordered Nausea/Vomiting Control: Adequate, Prn Tx Ordered Complications Possibly Related to Anesthesia: None Noted
--- NOTE | 2017-01-24 15:38 | POSTOPPROG ---
Post Op Note Date of Operation: 01/24/17 Surgeon: Jose Antonio Delarosa Horticultural Specialty Grower: n/a Anesthesiologist: Dr. Jarrett Anesthesia: GET(General Endotracheal) Pre-op Diagnosis: #30 periapical abscess, R submandibular abscess Post-op Diagnosis: same Indication: infection Procedure: ext #30, I&D R submandibular/R buccal space abscess, drains x 2 Findings: purulent drainage Inf/Abcess present in the surg proc area at time of surgery?: Yes Depth: Deep Incisional (Fascial) EBL: Minimal Complications: none Drains: Lea (x 2, extraoral)
--- NOTE | 2017-01-24 16:19 | ASMTCMCOM ---
CM Note CM Note Notes: Chart reviewed, spoke w/ MARIPOSA Serrano. Pt admitted w/ submandibular abscess. Pt will most likely discharge independent. Pt had surgery to drain abscess today. CM available for any changes. Date Signed: 01/24/2017 04:18 PM Electronically Signed By:KAYLEE Muller
[2017-01-24] MEDS: CHLORHEXIDINE GLUCONATE 15 ML UDL PO SCH ×2 (17:08→22:10)
--- NOTE | 2017-01-24 18:48 | GOP ---
[f rep st] MECHANICAL INTEGRITY SPECIALIST OPERATIVE REPORT DATE OF OPERATION: 01/24/2017 SURGEON: Jose Antonio Delarosa DDS, MD PREOPERATIVE DIAGNOSIS: Right submandibular space abscess, #30 periapical abscess. POSTOPERATIVE DIAGNOSIS: Right submandibular space abscess, buccal space abscess, #30 periapical abscess. PROCEDURE PERFORMED: Incision and drainage of right submandibular space and buccal space abscess, extraction of tooth #30, placement of 2 extraoral Lea drains. FINDINGS: purulent drainage SPECIMENS: 2 cultures anaerobic and aerobic. ESTIMATED BLOOD LOSS: 10 cc. URINE OUTPUT: none recorded DISPOSITION: floor INDICATIONS: The patient is a 66-year-old female with right facial pain and swelling > one week. Has been evaluated by the ED, her dentist, and has received multiple courses of oral and IV antibiotics. She returned to [facility] on 01/[address] scan demonstrated a fluid collection of the right submandibular space. Images sent from her dentist revealed periapical pathology with tooth #30. It was indicated that she have this tooth extracted along with an I and D of the abscess. Risks, benefits, and complications were explained to the patient. She consented to the procedure and she was admitted overnight to prepare for surgical intervention. DESCRIPTION OF PROCEDURE: The patient was correctly identified in the preoperative holding area and transported to [facility]. She was transferred to the bed in a supine position where all ASA monitors were attached. She was induced under general anesthesia and an oral endotracheal tube was placed and secured to the left side of the mouth. She was prepped and draped in the usual sterile fashion and a time-out was performed where all members of the team were in agreement of the procedure. 5 cc of 0.5% Marcaine was given as a right inferior alveolar nerve lingual, buccal, and mental nerve block. The inferior border of the right mandible was outlined and a 1 cm incision was created 2 cm below this border. Under negative pressure, aspiration through this neck incision was performed where 2 cc of purulent fluid was obtained and sent for aerobic and anaerobic cultures. A bite block was placed along with a throat pack and the oral cavity was thoroughly brushed with Peridex rinse. A crestal incision was performed in the right lower quadrant surrounding #29-31 and tooth #30 was elevated and delivered atraumatically. A 1-cm neck incision at the site of aspiration was developed and mosquito forceps were utilized to bluntly dissect around the buccal and lingual cortices of the mandible surrounding #30. Upon reaching the oral cavity, a copious amount of purulent drainage was obtained approximating 8 cc. This area was thoroughly irrigated and 2 [place] drains (1 buccal space, 1 submandibular space) were placed and tunneled to the oral cavity. These were secured to the neck via 0 Prolene sutures. The oral cavity as well as the neck incision were irrigated and observed to be patent. The throat pack was removed and a 4 x 4 with umbilical tape was placed intraorally for a pressure dressing. 4x4 gauze and an Germain wrap was placed as a cervical dressing. The patient was turned over to Anesthesia and awakened and extubated without complication. She was taken to the PACU in the care of her surgery team. /[id number]/MODL MTDD
[2017-01-25] MEDS: oxyCODONE IR 5 MG TAB PO PRN ×2 (01:12→08:16)
[2017-01-25 05:13] LABS: ABSOLUTE IMMATURE GRANULOCYTES 0.08 10^3/uL (0.00-0.10); ADD DIFF? NO; ADD MORPH? NO; ADD SCAN? NO; ATYPICAL LYMPHOCYTE FLAG 20 (0-99); FRAGMENT RBC FLAG 0 (0-99); HEMATOCRIT 27.2 % (38.0-47.0); HEMOGLOBIN 8.9 g/dL (12.6-16.3); LEFT SHIFT FLG 20 (0-99); LIPEMIA HEMOLYSIS FLAG 80 (0-99); MEAN CELL HEMOGLOBIN 29.8 pg (27.9-34.1); MEAN CELL HEMOGLOBIN CONCENTR. 32.7 g/dL (32.4-36.7); PLATELET CLUMPS FLAG 20 (0-99); PLATELET COUNT 94 10^3/uL (150-400); RED BLOOD CELL COUNT 2.99 10^6/uL (4.18-5.33); RED CELL DISTRIBUTION WIDTH 15.3 % (11.5-15.2)
[2017-01-25] MEDS: AMPICILLIN/SULBACTAM 3 GM in NS 100 ML IV SCH ×3 (05:43→22:42)
[2017-01-25 06:00] LABS: ANION GAP 10 mEq/L (8-16); CALCIUM 8.4 mg/dL (8.5-10.4); CARBON DIOXIDE 12 mEq/l (22-31); CHLORIDE 119 mEq/L (97-110); CREATININE 1.5 mg/dL (0.6-1.0); GLOMERULAR FILTRATION RATE 35; GLUCOSE 93 mg/dL (70-100); POTASSIUM 3.3 mEq/L (3.5-5.2); SODIUM 141 mEq/L (134-144)
[2017-01-25] MEDS: CHLORHEXIDINE GLUCONATE 15 ML UDL PO SCH ×2 (08:17→20:00)
[2017-01-25] MEDS: predniSONE 5 MG TAB PO SCH (08:17)
[2017-01-25] MEDS: MYCOPHENOLATE MOFETIL PO SCH (09:13)
--- NOTE | 2017-01-25 13:33 | SOAPPROG ---
SOAP Progress Note Assessment/Plan: Assessment: POD 1 of I&D of R buccal/SM space infection, ext tooth #30, stable and doing well. most likely will remain admitted over the weekend, drains will remain in place for now. Discussed findings, procedure, and post-op expectations with pt today, all questions addressed. Plan: continue unasyn and peridex advance diet as tolerated ok to shower if dressing changed, please note time that it was removed 01/25/17 13:26 Subjective: no overnight events reported, pt states that drain feels long inside the oral cavity, otherwise pain controlled, tolerating PO intake Objective: Vital Signs Temp Pulse Resp BP Pulse Ox 36.8 C 83 12 124/63 H 92 01/25/17 12:00 01/25/17 12:00 01/25/17 12:00 01/25/17 12:00 01/25/17 12:00 Microbiology 01/24/17 15:05 Gram Stain - Final Head - Eswab 01/24/17 15:05 Gram Stain - Final Head - Aspirate Laboratory Results 01/25/17 04:47 01/25/17 04:47 01/24/17 01/25/17 01/26/17 05:59 05:59 05:59 Intake Total 1100 1502 Output Total 405 Balance 1100 1097 mod right submandibular and lower facial edema, as expected POD 1, CN II-XII grossly intact, dajuan drains sutured to cervical region (submandibular drain withdrawn from oral cavity and repositioned with dressing, extraction socket hemostatic ICD10 Worksheet Patient Problems: Problems Problem Status Onset Submandibular abscess Acute Dyspnea Acute Hypokalemia Acute Renal insufficiency Acute
--- NOTE | 2017-01-25 13:51 | HOSPPROG ---
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 Plan: 1. Mandibular abscess - -Likely originating from tooth infection. 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 - recieved stress dose, hydro 100mg IV once. 3. CKD - Cr 1.7, very near baseline of ~1.5. Avoid nephrotoxins and renally dose medications. 4. Hypotension -stable Diet - regular Ppx - SCDs Code - Full Dispo - Admit to inpatient status noting need for I&D, IV abx, and pain control Subjective: Still having pain. Some hallucinations from pain meds. No other issues. Objective: Vital Signs Temp Pulse Resp BP Pulse Ox 36.8 C 83 12 124/63 H 92 01/25/17 12:00 01/25/17 12:00 01/25/17 12:00 01/25/17 12:00 01/25/17 12:00 Microbiology 01/24/17 15:05 Gram Stain - Final Head - Eswab 01/24/17 15:05 Gram Stain - Final Head - Aspirate Laboratory Results 01/25/17 04:47 01/25/17 04:47 01/24/17 01/25/17 01/26/17 05:59 05:59 05:59 Intake Total 1100 1502 Output Total 405 Balance 1100 1097 - Physical Exam Constitutional: appears nourished, uncomfortable Eyes: PERRL, anicteric sclera, EOMI Ears, Nose, Mouth, Throat: ears appear normal, poor dentition, other (drain,) Cardiovascular: No JVD, No edema Respiratory: no respiratory distress, reduced air movement Gastrointestinal: No tenderness, No ascites Skin: warm, normal color, No mottled Musculoskeletal: normal joint ROM, no joint effusions, generalized weakness Neurologic: AAOx3 Psychiatric: not anxious, not encephalopathic, thought process linear ICD10 Worksheet Patient Problems: Problems Problem Status Onset Hypokalemia Acute Dyspnea Acute Renal insufficiency Acute Submandibular abscess Acute
--- NOTE | 2017-01-25 15:51 | PCMIDPN ---
Assessment/Plan: # Sepsis secondary to #30 periapical abscess, R submandibular/buccal abscess now s/p I&D. Gram stain suggests a polymicrobial infection as would expect oral johnie. Patient with persistent swelling and induration right lower jaw, this is my 1st exam but patient and report improvement. Afebrile since admission, WBC normalized --continue IV Unasyn # Renal insufficiency, creatinine 1.5: Continue Unasyn 3 g IV Q 8, will continue to follow creatinine and adjust Unasyn for improving renal function Microbiology 01/24 blood cultures (2) NGTD 01/24 mandibular abscess, Gram stain polymicrobial, cultures no growth today Medications Unasyn 3 g IV Q 8, # 2 Subjective: Poor p.o. intake since surgery Intermittent pain No diarrhea Objective: Vital Signs Temp Pulse Resp BP Pulse Ox 36.8 C 83 12 124/63 H 92 01/25/17 12:00 01/25/17 12:00 01/25/17 12:00 01/25/17 12:00 01/25/17 12:00 Microbiology 01/24/17 15:05 Gram Stain - Final Head - Eswab 01/24/17 15:05 Gram Stain - Final Head - Aspirate Laboratory Results 01/25/17 04:47 01/25/17 04:47 01/24/17 01/25/17 01/26/17 05:59 05:59 05:59 Intake Total 1100 1502 Output Total 405 Balance 1100 1097 - Physical Exam General Appearance: alert, no apparent distress EENT: other (Drain in place intra oral, lower jaw) Neck: other (Induration and mild erythema on the right lower jaw and neck, Lea drains in place, mild tenderness to palpation) Cardiac/Chest: regular rate, rhythm, No systolic murmur Extremities: No pedal edema Abdomen: non-tender, soft Skin: No rash Neuro/Psych: alert, normal mood/affect, oriented x 3 - Line/s PIV Lines: other (Right forearm), No drainage, No erythema ICD10 Worksheet Patient Problems: Problems Problem Status Onset Submandibular abscess Acute Dyspnea Acute Hypokalemia Acute Renal insufficiency Acute
[2017-01-25] MEDS: POTASSIUM CL 20 MEQ PKT PO SCH (16:47)
[2017-01-25] MEDS ORDERED: MYCOPHENOLATE MOFETIL 250 MG CAP PO ONE (17:00)
[2017-01-26] MEDS: AMPICILLIN/SULBACTAM 3 GM in NS 100 ML IV SCH ×3 (05:31→21:35)
[2017-01-26] MEDS: POTASSIUM CL 20 MEQ PKT PO SCH (09:34)
[2017-01-26] MEDS: predniSONE 5 MG TAB PO SCH (09:34)
[2017-01-26] MEDS: CHLORHEXIDINE GLUCONATE 15 ML UDL PO SCH ×2 (09:34→21:31)
--- NOTE | 2017-01-26 09:36 | SOAPPROG ---
SOAP Progress Note Assessment/Plan: Assessment: POD 2 of I&D/drain placement of R buccal/SM space infection, ext tooth #30, stable, with continued purulent drainage from extraoral site. No advancement or removal of drains today, will continue to monitor output, suspicion for midline extension, borders marked today. Discussed with pt and today, all questions addressed. Plan: continue unasyn and peridex, appreciate ID advance diet as tolerated ok to shower if dressing changed, please note time that it was removed CBC tomorrow pending final Micro encourage ambulation 01/26/17 09:41 Subjective: yesterday she did well, did endorse overnight pain requiring IV analgesics, discomfort currently manageable, points to drain site (and path of subQ dissection) as the location of pain Objective: Vital Signs Temp Pulse Resp BP Pulse Ox 36.9 C 76 16 135/69 H 94 01/26/17 08:00 01/26/17 08:00 01/26/17 08:00 01/26/17 08:00 01/26/17 08:00 Microbiology 01/24/17 15:05 Gram Stain - Final Head - Eswab 01/24/17 15:05 Gram Stain - Final Head - Aspirate Laboratory Results 01/25/17 04:47 01/25/17 04:47 01/25/17 01/26/17 01/27/17 05:59 05:59 05:59 Intake Total 1502 400 Output Total 405 1050 Balance 1097 -650 moderate right lower and cervical induration and edema, improvement in erythema , mild extension across the submental region, tenderness to palpation at region superior to drain incision extraorally, as expected post-dissection, DOROTEO ~25 mm , extraction site hemostatic, intraoral drain extension unchanged, FOM soft, non -tender, right mandibular vestibule with minimal fullness, as expected ICD10 Worksheet Patient Problems: Problems Problem Status Onset Submandibular abscess Acute Dyspnea Acute Hypokalemia Acute Renal insufficiency Acute
--- NOTE | 2017-01-26 09:39 | PCMIDPN ---
Assessment/Plan: # Sepsis secondary to #30 periapical abscess, R submandibular/buccal abscess now s/p I&D. Gram stain suggests a polymicrobial infection. induration is stable to slightly expanded to the left on her chin --continue IV Unasyn --increase PO intake and activity --continue to monitor exam closely # Renal insufficiency, chronic. 1.3 today Microbiology 01/24 blood cultures (2) NGTD 01/24 mandibular abscess, Gram stain polymicrobial, cultures no growth today Medications Unasyn 3 g IV Q 8h, # 3 Subjective: still with R jaw pain intermittently Objective: Vital Signs Temp Pulse Resp BP Pulse Ox 36.9 C 76 16 135/69 H 94 01/26/17 08:00 01/26/17 08:00 01/26/17 08:00 01/26/17 08:00 01/26/17 08:00 Microbiology 01/24/17 15:05 Gram Stain - Final Head - Eswab 01/24/17 15:05 Gram Stain - Final Head - Aspirate Laboratory Results 01/25/17 04:47 01/25/17 04:47 01/25/17 01/26/17 01/27/17 05:59 05:59 05:59 Intake Total 1502 400 Output Total 405 1050 Balance 1097 -650 Gen: nontoxic NAD, fluent speech HEENT: R lower tooth extraction site with drain in place, right jaw and submental region with induration, erythema resolved, Drains R submental area with small amount purulent drainage CV: RRR 2/6 SM Abd: SOFT NT Chest: breathing easy ICD10 Worksheet Patient Problems: Problems Problem Status Onset Submandibular abscess Acute Dyspnea Acute Hypokalemia Acute Renal insufficiency Acute
[2017-01-26] MEDS: MYCOPHENOLATE MOFETIL PO SCH (09:48)
[2017-01-26 10:10] LABS: % IMMATURE GRANULYOCYTES 2.5 % (0.0-1.1); ABSOLUTE IMMATURE GRANULOCYTES 0.22 10^3/uL (0.00-0.10); ADD DIFF? NO; ADD MORPH? NO; ADD SCAN? NO; ATYPICAL LYMPHOCYTE FLAG 0 (0-99); FRAGMENT RBC FLAG 0 (0-99); HEMATOCRIT 31.4 % (38.0-47.0); HEMOGLOBIN 10.1 g/dL (12.6-16.3); LEFT SHIFT FLG 20 (0-99); LIPEMIA HEMOLYSIS FLAG 80 (0-99); MEAN CELL HEMOGLOBIN 29.5 pg (27.9-34.1); MEAN CELL HEMOGLOBIN CONCENTR. 32.2 g/dL (32.4-36.7); MEAN CELL VOLUME 91.8 fL (81.5-99.8); MEAN PLATELET VOLUME 10.8 fL (8.7-11.7); PLATELET CLUMPS FLAG 0 (0-99); PLATELET COUNT 139 10^3/uL (150-400); RED BLOOD CELL COUNT 3.42 10^6/uL (4.18-5.33); RED CELL DISTRIBUTION WIDTH 15.5 % (11.5-15.2)
[2017-01-26 10:28] LABS: ALANINE AMINOTRANSFERASE 44 IU/L (9-52); ALBUMIN 2.8 g/dL (3.5-5.0); ALKALINE PHOSPHATASE 165 IU/L (38-126); ANION GAP 9 mEq/L (8-16); ASPARTATE AMINOTRANSFERASE 23 IU/L (14-46); BILIRUBIN,TOTAL 0.7 mg/dL (0.1-1.4); CALCIUM 8.8 mg/dL (8.5-10.4); CARBON DIOXIDE 13 mEq/l (22-31); CHLORIDE 122 mEq/L (97-110); CREATININE 1.3 mg/dL (0.6-1.0); GLOMERULAR FILTRATION RATE 41; GLUCOSE 80 mg/dL (70-100); SODIUM 144 mEq/L (134-144); TOTAL PROTEIN 5.8 g/dL (6.3-8.2)
--- NOTE | 2017-01-26 12:49 | HOSPPROG ---
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 D/W Dr Caraballo and Dr Delarosa Plan: # Sepsis resolved # R submandibular/buccal abscess now POD #2 I&D with extraction Gram stain suggests a polymicrobial infection. continue IV Unasyn, 3 g IV Q 8, # 3 # Mixed-CTD - - cont Cellcept and prednisone 2m qD for this. - recieved stress dose, hydro 100mg IV once. # CKD - Cr 1.3, baseline of ~1.5. Avoid nephrotoxins and renally dose medications. # Hypotension -stable Diet - regular Ppx - SCDs Code - Full Dispo - Admit to inpatient status noting need for I&D, IV abx, and pain control Subjective: Feeling better. Still having some pain. Objective: Vital Signs Temp Pulse Resp BP Pulse Ox 36.9 C 76 16 135/69 H 94 01/26/17 08:00 01/26/17 08:00 01/26/17 08:00 01/26/17 08:00 01/26/17 08:00 Microbiology 01/24/17 15:05 Gram Stain - Final Head - Eswab 01/24/17 15:05 Gram Stain - Final Head - Aspirate Laboratory Results 01/26/17 09:57 01/26/17 09:57 01/25/17 01/26/17 01/27/17 05:59 05:59 05:59 Intake Total 1502 400 Output Total 405 1050 Balance 1097 -650 - Physical Exam Constitutional: appears nourished, chronically ill appearing, uncomfortable Eyes: PERRL, anicteric sclera, EOMI Ears, Nose, Mouth, Throat: hearing normal, ears appear normal, poor dentition Cardiovascular: No JVD, No tachycardia, No edema Respiratory: no respiratory distress, no rales or rhonchi, reduced air movement Gastrointestinal: No tenderness, No ascites, No guarding Skin: warm, erythema, No abrasion Musculoskeletal: normal joint ROM, no joint effusions, generalized weakness Neurologic: AAOx3 Psychiatric: interacting appropriately, not anxious, not encephalopathic ICD10 Worksheet Patient Problems: Problems Problem Status Onset Hypokalemia Acute Dyspnea Acute Renal insufficiency Acute Submandibular abscess Acute
[2017-01-27] MEDS: AMPICILLIN/SULBACTAM 3 GM in NS 100 ML IV SCH (06:12)
[2017-01-27] MEDS: predniSONE 5 MG TAB PO SCH (07:49)
[2017-01-27] MEDS: OXYCODONE/APAP 5/325 TAB PO PRN ×2 (07:50→19:26)
[2017-01-27] MEDS: POTASSIUM CL 20 MEQ PKT PO SCH (07:51)
[2017-01-27] MEDS ORDERED: POTASSIUM CL 20 MEQ PKT PO ONE (07:53)
--- NOTE | 2017-01-27 10:04 | SOAPPROG ---
SOAP Progress Note Assessment/Plan: Assessment: POD 3 of I&D/drain placement of R buccal/SM space infection, ext tooth #30, stable and improving, buccal drain removed today. will monitor output of submandibular drain today, plan for removal or advancement tomorrow, likely ok to dc from OMFS standpoint tomorrow. Plan: continue unasyn and peridex, appreciate ID regular diet ok shower ok if dressing changed, please note time that it was removed pending final Micro encourage ambulation 01/27/17 09:58 Subjective: no overnight events reported, states that pain is well-managed currently Objective: Vital Signs Temp Pulse Resp BP Pulse Ox 37.0 C 80 14 135/72 H 96 01/27/17 07:16 01/27/17 07:16 01/27/17 07:16 01/27/17 07:16 01/27/17 07:16 Microbiology 01/24/17 15:05 Gram Stain - Final Head - Eswab 01/24/17 15:05 Gram Stain - Final Head - Aspirate Laboratory Results 01/26/17 09:57 01/26/17 09:57 01/26/17 01/27/17 01/28/17 05:59 05:59 05:59 Intake Total 400 Output Total 1050 Balance -650 resolving induration and edema, submental extension receeding, CN II-XII grossly intact, drain site with intact sutures, no surrounding erythema, DOROTEO 25 mm, extraction site hemostatic, FOM soft, NT/ND, mild SM drain extension into oral cavity (repositioned today) ICD10 Worksheet Patient Problems: Problems Problem Status Onset Submandibular abscess Acute Dyspnea Acute Hypokalemia Acute Renal insufficiency Acute
[2017-01-27] MEDS: CHLORHEXIDINE GLUCONATE 15 ML UDL PO SCH ×2 (10:52→21:26)
[2017-01-27] MEDS: MYCOPHENOLATE MOFETIL PO SCH (10:58)
[2017-01-27] MEDS ORDERED: ERGOCALCIFEROL 50,000 I.UNIT CAP PO SCH (11:20)
--- NOTE | 2017-01-27 11:40 | PDIAF ---
- Diagnosis Diagnosis: Cervicofacial Actinomyces Code Status: Full Code - Medication Management Discharge Medications: Medications to Continue on Transfer Ergocalciferol [Vitamin D2 (*)] 50,000 unit PO LONGORIA 10/13/15 [Last Taken 01/20/17] Mycophenolate Mofetil [Cellcept] 2,000 mg PO DAILY 10/13/15 [Last Taken 01/23/17 ] oxyCODONE/APAP 5/325 [Percocet 5/325 (*)] 1 tab PO Q4H PRN #10 tab 01/20/17 [ Last Taken Unknown] oxyCODONE IR [Oxycodone Ir (*)] 5 - 10 mg PO Q6 PRN #20 tab 01/21/17 [Last Taken Unknown] Clindamycin 150 mg PO QID 01/24/17 [Last Taken 01/23/17 22:00] Ibuprofen [Motrin (*)] 800 mg PO Q8HRS PRN 01/24/17 [Last Taken 01/23/17] Pilocarpine HCl [Salagen 5mg (*)] 5 mg PO TID PRN 01/24/17 [Last Taken Unknown] predniSONE 2.5 mg PO DAILY 01/24/17 [Last Taken 01/23/17] [facility] Antibiotics: penicillin 24MU 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 PICC Care - Routine: Yes - Orders Services needed: Home Care, Registered Nurse Home Care Face to Face: I certify that this patient was under my care and that I had the required [id number] encounter meeting the encounter requirements on the discharge day. My findings support the fact that the patient is homebound as defined in CMS Chapter 7 Medicare Benefits Manual 30.1.1, The condition of the patient is such that there exists a normal inability to leave home and consequently, leaving home would require a considerable and taxing effort. - Labs/Radiology CBC Date: 02/04/17 (weekly saturday) CMP Date: 02/04/17 (weekly saturday) - Follow Up Care Current Providers and Referrals: Som Guerrero MD [Primary Care Provider] - As per Instructions Elvira Caraballo MD [Medical Doctor] -
--- NOTE | 2017-01-27 12:03 | PCMIDPN ---
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 induration is stable today --Dc unasyn --start IV penicillin, plan 2-4 weeks IV, Unasyn would cover but penicillin gold standard therapy. Longer IV therapy need to treat actinomyces cervicofacial disease --may have to consider re-image jaw in a couple weeks, MRI at admit showed no OM , but may be falsely neg early in disease. Alternatively could just treat with IV penicillin for full 6 weeks # Mixed CT disease on chr low dose steroids and mycophenolate, patient states on lowest dose immune suppression possible # Renal insufficiency, chronic. 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 Objective: Vital Signs Temp Pulse Resp BP Pulse Ox 37.0 C 80 14 135/72 H 96 01/27/17 07:16 01/27/17 07:16 01/27/17 07:16 01/27/17 07:16 01/27/17 07:16 Microbiology 01/24/17 15:05 Gram Stain - Final Head - Eswab 01/24/17 15:05 Gram Stain - Final Head - Aspirate Laboratory Results 01/26/17 09:57 01/26/17 09:57 01/26/17 01/27/17 01/28/17 05:59 05:59 05:59 Intake Total 400 Output Total 1050 Balance -650 Gen: nontoxic NAD, fluent speech HEENT: R lower tooth extraction site with drain in place, right jaw and submental region with induration- slightly softer than yesterday, erythema resolved, Drains R submental area with small amount purulent drainage CV: RRR 2/6 SM Abd: SOFT NT Chest: breathing easy - Time Spent With Patient Time Spent with Patient: greater than 35 minutes (IV antibiotics, PICC line placement risks and benefits.) Time Spent with Patient: Greater than 35 minutes spent on this patients care, greater than 50% of time spent counseling, educating, and coordinating care regarding the above mentioned plan. ICD10 Worksheet Patient Problems: Problems Problem Status Onset Submandibular abscess Acute Dyspnea Acute Hypokalemia Acute Renal insufficiency Acute
--- NOTE | 2017-01-27 12:35 | HOSPPROG ---
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 D/W Dr Caraballo Plan: # Sepsis resolved # R submandibular/buccal abscess now POD #3 I&D with extraction Gram stain suggests a polymicrobial infection, actinomyces cervicofacial disease Dc unasyn per ID start IV penicillin, plan 2-4 weeks IV, consider re-image jaw in a couple weeks # Mixed-CTD - - cont Cellcept and prednisone 2m qD for this. - recieved stress dose, hydro 100mg IV once. # CKD - Cr 1.3, baseline of ~1.5. Avoid nephrotoxins and renally dose medications. # Hypotension -stable #Hypokalemia replace Diet - regular Ppx - SCDs Code - Full Dispo - Admit to inpatient status noting need for I&D, IV abx, and pain control Subjective: Feeling better today. Less pain. Objective: Vital Signs Temp Pulse Resp BP Pulse Ox 36.8 C 65 12 105/60 96 01/27/17 12:08 01/27/17 12:08 01/27/17 12:08 01/27/17 12:08 01/27/17 12:08 Microbiology 01/24/17 15:05 Gram Stain - Final Head - Eswab 01/24/17 15:05 Gram Stain - Final Head - Aspirate Laboratory Results 01/26/17 09:57 01/26/17 09:57 01/26/17 01/27/17 01/28/17 05:59 05:59 05:59 Intake Total 400 Output Total 1050 Balance -650 - Physical Exam Constitutional: no apparent distress, appears nourished, not in pain Eyes: PERRL, anicteric sclera, EOMI Ears, Nose, Mouth, Throat: moist mucous membranes, hearing normal, ears appear normal, other (swelling) Cardiovascular: regular rate and rhythym, No JVD, No edema Respiratory: no respiratory distress, no rales or rhonchi, reduced air movement Gastrointestinal: soft, non-tender abdomen, No tenderness, No ascites Skin: warm, erythema, No mottled Musculoskeletal: normal joint ROM, no joint effusions, generalized weakness Neurologic: AAOx3 Psychiatric: interacting appropriately, not anxious, not encephalopathic ICD10 Worksheet Patient Problems: Problems Problem Status Onset Submandibular abscess Acute Dyspnea Acute Hypokalemia Acute Renal insufficiency Acute
[2017-01-27] MEDS: PENICILLIN G POTASSIUM 4,000,000 UNIT in D5W 100 ML IV SCH ×4 (13:19→21:26)
[2017-01-27] MEDS: MYCOPHENOLATE MOFETIL 250 MG CAP PO SCH (13:58)
--- NOTE | 2017-01-27 14:55 | ASMTCMCOM ---
ROBERT Note ROBERT Note Notes: Spoke w/MD, pt will need IV abx continuous infusion for 2-4 weeks. CM sent referral to [facility] and notified pt, waiting for them to run benefits, ROBERT w/f. Date Signed: 01/27/2017 02:54 PM Electronically Signed By:Marie Payne RN
[2017-01-28] MEDS: OXYCODONE/APAP 5/325 TAB PO PRN ×2 (02:08→10:01)
[2017-01-28] MEDS: PENICILLIN G POTASSIUM 4,000,000 UNIT in D5W 100 ML IV SCH ×3 (02:08→10:00)
[2017-01-28] MEDS ORDERED: ALTEPLASE 2 MG VIAL IVP PRN (09:56)
[2017-01-28] MEDS: predniSONE 5 MG TAB PO SCH (11:01)
--- NOTE | 2017-01-28 11:05 | PCMIDPN ---
Assessment/Plan: Assessment: Plan: Objective: Vital Signs Temp Pulse Resp BP Pulse Ox 36.5 C 62 16 118/63 95 01/28/17 07:46 01/28/17 07:46 01/28/17 07:46 01/28/17 07:46 01/28/17 07:46 Microbiology 01/24/17 15:05 Gram Stain - Final Head - Eswab 01/24/17 15:05 Gram Stain - Final Head - Aspirate Laboratory Results 01/26/17 09:57 01/26/17 09:57 01/27/17 01/28/17 01/29/17 05:59 05:59 05:59 Intake Total 970 Balance 970 ICD10 Worksheet Patient Problems: Problems Problem Status Onset Submandibular abscess Acute Dyspnea Acute Hypokalemia Acute Renal insufficiency Acute
[2017-01-28] MEDS: POTASSIUM CL 20 MEQ PKT PO SCH (11:06)
--- NOTE | 2017-01-28 11:09 | PDIAF ---
- Diagnosis Diagnosis: Cervicofacial Actinomyces Code Status: Full Code - Medication Management Discharge Medications: Medications to Continue on Transfer Ergocalciferol [Vitamin D2 (*)] 50,000 unit PO LONGORIA 10/13/15 [Last Taken 01/20/17] Mycophenolate Mofetil [Cellcept] 2,000 mg PO DAILY 10/13/15 [Last Taken 01/23/17 ] oxyCODONE/APAP 5/325 [Percocet 5/325 (*)] 1 tab PO Q4H PRN #10 tab 01/20/17 [ Last Taken Unknown] oxyCODONE IR [Oxycodone Ir (*)] 5 - 10 mg PO Q6 PRN #20 tab 01/21/17 [Last Taken Unknown] Clindamycin 150 mg PO QID 01/24/17 [Last Taken 01/23/17 22:00] Ibuprofen [Motrin (*)] 800 mg PO Q8HRS PRN 01/24/17 [Last Taken 01/23/17] Pilocarpine HCl [Salagen 5mg (*)] 5 mg PO TID PRN 01/24/17 [Last Taken Unknown] predniSONE 2.5 mg PO DAILY 01/24/17 [Last Taken 01/23/17] Long-Term Antibiotics: ceftriaxone 2 g IV q 24 hours 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 PICC Care - Routine: Yes - Orders Services needed: Home Care, Registered Nurse Home Care Face to Face: I certify that this patient was under my care and that I had the required [id number] encounter meeting the encounter requirements on the discharge day. My findings support the fact that the patient is homebound as defined in CMS Chapter 7 Medicare Benefits Manual 30.1.1, The condition of the patient is such that there exists a normal inability to leave home and consequently, leaving home would require a considerable and taxing effort. - Labs/Radiology CBC Date: 02/04/17 (weekly saturday) CMP Date: 02/04/17 (weekly saturday) - Follow Up Care Current Providers and Referrals: Som Guerrero MD [Primary Care Provider] - As per Instructions Elvira Caraballo MD [Medical Doctor] -
--- NOTE | 2017-01-28 11:13 | SOAPPROG ---
SOAP Progress Note Assessment/Plan: Assessment: POD 4 of I&D/drain placement of R buccal/SM space infection, ext tooth #30, stable and improving, submandibular drain removed today, ok to d/c from OMFS standpoint. Discussed post-operative course and expectations with pt, she will see me Thursday 02/01 in office for a f/u. Plan: PICC/PCN per ID d/c with peridex, please continue BID mouthrinse x one additional week regular diet ok pt has Dr. Delarosa's contact information to schedule f/u visit in office 01/28/17 11:10 Subjective: no overnight events reported Objective: Vital Signs Temp Pulse Resp BP Pulse Ox 36.5 C 62 16 118/63 95 01/28/17 07:46 01/28/17 07:46 01/28/17 07:46 01/28/17 07:46 01/28/17 07:46 Microbiology 01/24/17 15:05 Gram Stain - Final Head - Eswab 01/24/17 15:05 Gram Stain - Final Head - Aspirate Laboratory Results 01/26/17 09:57 01/26/17 09:57 01/27/17 01/28/17 01/29/17 05:59 05:59 05:59 Intake Total 970 Balance 970 improvement in right lower facial and submandibular induration and edema, CN II- XII grossly intact, drain site with minimal purulent drainage, no erythema surrounding drain site extraorally, extraction site healing well ICD10 Worksheet Patient Problems: Problems Problem Status Onset Submandibular abscess Acute Dyspnea Acute Hypokalemia Acute Renal insufficiency Acute
[2017-01-28] MEDS ORDERED: metroNIDAZOLE 500 MG TAB PO SCH (11:15)
[2017-01-28] MEDS ORDERED: cefTRIAXone 2 GM in D5W 50 ML IV SCH (11:30)
[2017-01-28] MEDS: MYCOPHENOLATE MOFETIL 250 MG CAP PO SCH (11:33)
[2017-01-28] MEDS ORDERED: MYCOPHENOLATE MOFETIL 250 MG CAP PO SCH (12:00)
[2017-01-28] MEDS: CHLORHEXIDINE GLUCONATE 15 ML UDL PO SCH (12:13)
--- NOTE | 2017-01-28 12:36 | PDDCSUM ---
Discharge Summary Discharge Summary: DISCHARGE SUMMARY FOLLOW-UP ITEMS: Outpatient labs to Dr. Elvira Caraballo DATE OF ADMISSION: 01/23/2017 DATE OF DISCHARGE: 01/28/2017 DISCHARGE DIAGNOSES: 1. Sepsis 2. 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 Acute kidney injury on Chronic kidney disease stage 3 4. Acute hypokalemia 5. Acute hypotension 6. Mixed connective tissue disorder with chronic immunosuppression CONSULTATIONS: Dr. Delarosa from [facility], infectious Disease PROCEDURES / IMAGING: Right Buccal and submandibular space infection with washout and extraction of tooth number 30 CHIEF COMPLAINT: Acute tooth infection and pain SUBJECTIVE: Patient is feeling well, pain is managing well with Percocet PHYSICAL EXAM ON DISCHARGE: Systolic blood pressure 110-140, heart rate 60, afebrile overnight, satting well on room air, right mandibular tooth status post extraction with scabbing of the affected area, mild swelling along the right mandible and submandibular space with tenderness, minimal erythema LABS ON DISCHARGE: White blood cell count 8800, hemoglobin 10.1, creatinine 1.3, potassium 3.0, serum bicarbonate 13 HOSPITAL COURSE BY PROBLEM: 1. Sepsis. Evidenced by autonomic dysregulation in the setting of infection, with hypotension and systolic blood pressure of 76, tachycardia, leukocytosis and a white blood cell count of 19,000, fever,, clear source of infection. She meets ICD S-3/sofa criteria for sepsis. She received empiric IV fluids and IV antibiotics. Her leukocytosis normalized, she became afebrile, she became hemodynamically stable. 2. Submandibular/buccal abscess. Related to tooth number 30, status post extraction by OMFS, drain removed prior to discharge, the offending organisms including Actinomyces and fusobacterium. Per infectious disease, extended course of IV ceftriaxone, with likely outpatient imaging prior discontinuation. She will also follow-up with OMFS later this week. 3. Acute hypokalemia. Status post repletion, will have labs rechecked on Saturday. 4. Acute kidney injury on Chronic kidney disease stage 3. Secondary to hypoperfusion in the setting of sepsis, creatinine peaked to 1.7, down trended, baseline around 1.5. Will have a recheck as an outpatient. 5. Mixed connective tissue disorder with chronic immunosuppression. Patient is continued on CellCept and prednisone. She did receive a stress dose of hydrocortisone in the setting of hypotension and sepsis. DISCHARGE MEDICATIONS: Please see official discharge medication reconciliation sheet in chart , ceftriaxone 2 g daily, Percocet as needed, metronidazole 500 mg 3 times daily while she is on ceftriaxone. DISCHARGE INSTRUCTIONS: Please follow up with Dr. Arora this Saturday, Dr. Elvira Caraballo next week. TIME SPENT: Greater than 30 minutes were spent on direct patient care, as well as discharge planning and preparation.
--- NOTE | 2017-01-28 12:37 | PDIAF ---
- Diagnosis Diagnosis: Cervicofacial Actinomyces, Sepsis Code Status: Full Code - Medication Management Discharge Medications: Medications to Continue on Transfer Ergocalciferol [Vitamin D2 (*)] 50,000 unit PO LONGORIA 10/13/15 [Last Taken 01/20/17] Mycophenolate Mofetil [Cellcept] 2,000 mg PO DAILY 10/13/15 [Last Taken 01/23/17 ] Ibuprofen [Motrin (*)] 800 mg PO Q8HRS PRN 01/24/17 [Last Taken 01/23/17] Pilocarpine HCl [Salagen 5mg (*)] 5 mg PO TID PRN 01/24/17 [Last Taken Unknown] predniSONE 2.5 mg PO DAILY 01/24/17 [Last Taken 01/23/17] Acetaminophen [Tylenol 325mg (*)] 650 mg PO Q4HRS PRN tab 01/28/17 [Last Taken Unknown] cefTRIAXone [Rocephin] 2 gm IV DAILY #24 vial 01/28/17 [Last Taken Unknown] metroNIDAZOLE [Flagyl 500 mg (*)] 500 mg PO Q8HRS #72 tab 01/28/17 [Last Taken Unknown] oxyCODONE/APAP 5/325 [Percocet 5/325 (*)] 1 tab PO Q4H PRN #40 tab 01/28/17 [ Last Taken Unknown] Airways Operations Specialist Antibiotics: ceftriaxone 2 g IV q 24 hours Halfway Antibiotic Stop Date: 02/21/17 Discharge Medications: Refer to the Discharge Home Medication list for PRN reason. PICC Care - Routine: Yes - Orders Services needed: Home Care, Registered Nurse Home Care Face to Face: I certify that this patient was under my care and that I had the required [id number] encounter meeting the encounter requirements on the discharge day. My findings support the fact that the patient is homebound as defined in CMS Chapter 7 Medicare Benefits Manual 30.1.1, The condition of the patient is such that there exists a normal inability to leave home and consequently, leaving home would require a considerable and taxing effort. Home Care Face to Face Continued: CMS Chapter 7 Medicare Benefits Manual 30.1.1 , The condition of the patient is such that there exists a normal inability to leave home and consequently, leaving home would require a considerable and taxing effort. Diet Recommendation: other (soft diet as tolerated) Hansen: Not applicable Wound Care Instructions: keep bandaged - Labs/Radiology CBC Date: 02/04/17 (weekly saturday) CMP Date: 02/04/17 (weekly saturday) - Follow Up Care Current Providers and Referrals: Som Guerrero MD [Primary Care Provider] - As per Instructions Jose Antonio Delarosa MD [Medical Doctor] - (please follow-up as schedule on 02/01) Elvira Caraballo MD [Medical Doctor] - (please call to follow-up in 1 week)
[2017-01-28 12:44] VITALS: BP 145/75; PULSE 72; RESP 18; TEMP 98; O2SAT 97
--- NOTE | 2017-01-28 14:13 | ASMTCMCOM ---
CM Note CM Note Notes: Spoke with alma DOMINGUEZ to start today after PICC placement. Call to [facility] regarding medication changes. Spoke with Mitzy and patient has 80% coverage for infusion, remaining co-pay is 30 dollars daily patient notified and is agreeable. Referral, H&P and PICC report and final orders sent. Met with patient to discuss POC, address and phone verified. [facility] to also provided nursing services for infusion and PICC line care. Discussed with RN. Date Signed: 01/28/2017 02:12 PM Electronically Signed By:Yun Taveras RN
--- NOTE | 2017-01-28 16:54 | ASDISCHSUM ---
Discharge Information Plan Status:IV ABX/Infusion Medically Cleared to Leave: Discharge Date:01/28/2017 01:50 PM D/C Disposition:[facility] D/C Disposition:[facility] Projected Discharge Date:01/28/2017 12:00 PM Transportation at D/C:Family Discharge Delay Reason: Follow-Up Date:01/28/2017 12:00 PM Discharge Slot: Final Diagnosis: Placement Information Referral Type:Home Infusion Referral ID:[id number] Provider Name:[facility] Address 1:[address] Address 2: City:[place] Selection Factors: State:[place] Patient Contact Information Contact Name:JERMAINE Relationship: Address:[address] City:[place] Alternate Phone: State/Zip Code:[place] [phone] Email: Financial Information Financial Class:HMO and PPO Plans Primary Plan Desc:[facility] Primary Plan Number:[id number] Secondary Plan Desc: Secondary Plan Number: Assessment Information [facility] CM Progress Note CM Note CM Note Notes: Chart reviewed, spoke w/ MARIPOSA Serrano. Pt admitted w/ submandibular abscess. Pt will most likely discharge independent. Pt had surgery to drain abscess today. CM available for any changes. Date Signed: 01/24/2017 04:18 PM Electronically Signed By:KAYLEE Muller BC CM Progress Note CM Note CM Note Notes: Spoke w/MD, pt will need IV abx continuous infusion for 2-4 weeks. CM sent referral to [facility] and notified pt, waiting for them to run benefits, ROBERT w/f. Date Signed: 01/27/2017 02:54 PM Electronically Signed By:Marie Payne RN [facility] Progress Note CM Note CM Note Notes: Spoke with alma DOMINGUEZ [place] to start today after PICC placement. Call to [facility] regarding medication changes. Spoke with Mitzy and patient has 80% coverage for infusion, remaining co-pay is 30 dollars daily patient notified and is agreeable. Referral, H&P and PICC report and final orders sent. Met with patient to discuss POC, address and phone verified. [facility] to also provided nursing services for infusion and PICC line care. Discussed with RN. Date Signed: 01/28/2017 02:12 PM Electronically Signed By:Yun Taveras RN Intervention Information
== END 2017-01-28 13:50 | disposition home health service (06) | DRG 854 ==
LOC: OBSVTOIN 01-24 00:16 → F3E 01-24 01:55
PROVIDERS: ADMIT Student in an Organized Health Care Education/Training Program; ATTEND Internal Medicine
PROC: 3E03329 Introduction of Other Anti-infective into Peripheral Vein, Percutaneous Approach (ICD-10-PCS; 2017-01-24)
PROC: 3E0337Z Introduction of Electrolytic and Water Balance Substance into Peripheral Vein, Percutaneous Approach (ICD-10-PCS; 2017-01-24)
PROC: 0CDXXZ0 Extraction of Lower Tooth, Single, External Approach (ICD-10-PCS; principal; 2017-01-24 14:30)
PROC: 0N9 Head and Facial Bones, Drainage (ICD-10-PCS; principal; 2017-01-24 14:30)
PROC: 0C940ZX Drainage of Buccal Mucosa, Open Approach, Diagnostic (ICD-10-PCS; principal; 2017-01-24 14:30)
PROC: 02HV33Z Insertion of Infusion Device into Superior Vena Cava, Percutaneous Approach (ICD-10-PCS; 2017-01-28)
DX: A42.7 Actinomycotic sepsis (principal); A42.2 Cervicofacial actinomycosis; K12.2 Cellulitis and abscess of mouth; M35.9 Systemic involvement of connective tissue, unspecified; N17.9 Acute kidney failure, unspecified; N18.3 Chronic kidney disease, stage 3 (moderate); E87.6 Hypokalemia; E87.2 Acidosis; I95.9 Hypotension, unspecified; D72.829 Elevated white blood cell count, unspecified; E86.9 Volume depletion, unspecified; R53.83 Other fatigue; E55.9 Vitamin D deficiency, unspecified; K75.4 Autoimmune hepatitis; Z79.52 Long term (current) use of systemic steroids; Z79.899 Other long term (current) drug therapy; Z87.891 Personal history of nicotine dependence; Z88.2 Allergy status to sulfonamides
CPT/HCPCS: 96374; C1751; J0171; J0295; J0696; J2405; J2540; J2704; J3010; Q9967

== ENCOUNTER 2017-02-12 17:18 | Inpatient (IN) | payer OTHER ==
[2017-02-12] MEDS ORDERED: NS 1,000 ML IV ONE (18:02)
[2017-02-12] MEDS ORDERED: POTASSIUM CL 20 MEQ/15 ML UDCUP PO ONE (18:02)
[2017-02-12] MEDS ORDERED: POTASSIUM Cl (KCl) 100 ML IV ONE (18:02)
--- NOTE | 2017-02-12 18:07 | EDPHY ---
General Narrative: CHIEF COMPLAINT: Weakness, low potassium HISTORY OF PRESENT ILLNESS: Patient complains of weakness, dehydration and told that her potassium was low today. She has an ongoing treatment for dental abscess status post extraction on the 24 of January. She has had difficulty eating and drinking due to this. She had IV placed for daily Rocephin. She stopped this yesterday due to drug intolerance. She called her primary care physician and infectious disease physician. They saw her today, sent her to the hospital for IV fluid bolus and laboratory studies. The laboratory studies drawn revealed a hypokalemia, thus she was told to come to the emergency department prior to receiving IV fluid. She has had ongoing weakness. No chest pain. No shortness of breath. No cough. No fever. No neck pain or stiffness. No difficulty urinating. No abdominal pain. She has felt very weak all over. Difficulty moving due to this. REVIEW OF SYSTEMS: Ten systems reviewed and are negative unless otherwise noted in the HPI PCP: Dr. Guerrero SPECIALISTS: Dr. Peres PAST MEDICAL HISTORY: Next connective tissue disorder, recent dental abscess, chronic pain, congenital murmur PAST SURGICAL HISTORY: Appendectomy, dental extraction SOCIAL HISTORY: Nonsmoker. Lives with her spouse independently [place] in [place]. FAMILY HISTORY: Noncontributory EXAMINATION General Appearance: Alert, no distress Head: normocephalic, atraumatic Eyes: Pupils equal and round, no conjunctival pallor or injection ENT, Mouth: Mucous membranes dry. Smooth tongue. No appreciated abscess or pulpitis. Neck: Normal inspection, supple, non-tender Respiratory: Lungs are clear to auscultation. No wheezing, rhonchi or crackles Cardiovascular: Regular rate and rhythm. Systolic murmur. Pulses intact distally. Gastrointestinal: Abdomen is soft and nontender Back: non-tender, no bony abnormalities Neurological: A&O, nonfocal, normal gait. Strength is 4/5 in all 4 extremities. Skin: Warm and dry, no rash. No petechiae or purpura Extremities: Nontender, no pedal edema Psychiatric: Mood and affect normal DIFFERENTIAL DIAGNOSES: Including but not limited to dehydration, weakness, hyperkalemia, electrolyte disturbance, abnormal EKG, MDM: 6:05 p.m. Hypokalemia and dehydration. Patient is not tolerate intake by mouth hold due to recent tooth extraction with dental abscess. She does not appear ill. She does appear dry/dehydrated. Potassium was 2.4 today at outpatient drop. I will recheck this. She has no chest pain. Plan for IV piggyback potassium chloride and p.o. dose of potassium chloride as well as IV fluid resuscitation. She is awake and alert no acute distress. EKG has been ordered. Case discussed with Dr. Levin. 6:20 p.m. EKG does reveal some changes. They are not necessarily ischemic, but nor do they completely correlate with hypokalemia. Due to this had like to keep the patient for evaluation. She has no chest pain but I have ordered troponin. I discussed this with her. She has no history of coronary artery disease or AL. She has not had a stress test or heart catheterization. 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 6:45 p.m. Case discussed with hospitalist Dr. Gan. He will admit the patient to his service. She is admitted in stable condition. Recheck laboratory studies are pending. IV potassium replacement commenced. She is on a surveillance monitor no acute distress. No chest pain of any kind. Troponin is pending. EKG interpretation: Dr. Levin There are newly inverted T-waves. Please see is interpretation - History Smoking Status: Former smoker - Objective Vital Signs: Initial Vital Signs Temperature (C) 97.9 F 02/12/17 17:30 Heart Rate 105 H 02/12/17 17:30 Respiratory Rate 20 02/12/17 17:30 Blood Pressure 125/107 H 02/12/17 17:30 O2 Sat (%) 99 02/12/17 17:30 O2 Delivery Mode Room Air Allergies/Adverse Reactions: azathioprine [From Imuran] Allergy (Mild, Verified 02/12/17 17:28) Rash azathioprine sodium [From Imuran] Allergy (Mild, Verified 02/12/17 17:28) Rash Sulfa (Sulfonamide Antibiotics) Allergy (Mild, Verified 02/12/17 17:28) Rash amoxicillin [From Augmentin] Allergy (Verified 02/12/17 17:28) clavulanic acid [From Augmentin] Allergy (Verified 02/12/17 17:28) Home Medications: Medication Instructions Recorded Ergocalciferol [Vitamin D2 (*)] 50,000 unit PO LONGORIA 10/13/15 Mycophenolate Mofetil [Cellcept] 2,000 mg PO DAILY 10/13/15 Ibuprofen [Motrin (*)] 800 mg PO Q8HRS PRN 01/24/17 Pilocarpine HCl [Salagen 5mg (*)] 5 mg PO TID PRN 01/24/17 predniSONE 2.5 mg PO DAILY 01/24/17 Acetaminophen [Tylenol 325mg (*)] 650 mg PO Q4HRS PRN tab 01/28/17 metroNIDAZOLE [Flagyl 500 mg (*)] 500 mg PO Q8HRS #72 tab 01/28/17 Multivitamins [Multivitamin (*)] 1 each PO DAILY 02/12/17 cefTRIAXone 2 GM/DEXTROSE 2 gm IV DAILY 02/12/17 [Rocephin 2 gm (Premix) (RX)] Laboratory Results: Laboratory Results 02/12/17 18:30 02/12/17 02/12/17 18:30 18:30 Sodium 136 mEq/L mEq/L (134-144) Potassium 2.3 mEq/L L* mEq/L 2.3 mEq/L L* mEq/L (3.5-5.2) (3.5-5.2) Chloride 110 mEq/L mEq/L (97-110) Carbon Dioxide 15 mEq/l L mEq/l (22-31) Anion Gap 11 mEq/L mEq/L (8-16) BUN 32 mg/dL H mg/dL (7-23) Creatinine 1.4 mg/dL H mg/dL (0.6-1.0) Estimated GFR 38 Glucose 92 mg/dL mg/dL (70-100) Calcium 9.6 mg/dL mg/dL (8.5-10.4) Troponin I 0.022 ng/mL ng/mL (0.000-0.034) Medications Given: Potassium Chloride (Potassium Cl 20 Meq (Premix)) 100 mls @ 50 mls/hr IV EDNOW ONE Stop: 02/12/17 20:01 Last Admin: 02/12/17 18:36 Dose: 100 mls Discontinued Medications Sodium Chloride (Ns) 1,000 mls @ 0 mls/hr IV EDNOW ONE; Wide Open PRN Reason: Protocol Stop: 02/12/17 18:03 Last Admin: 02/12/17 18:29 Dose: 1,000 mls Potassium Chloride (Potassium Chloride Oral Liquid) 40 meq PO EDNOW ONE Stop: 02/12/17 18:03 Last Admin: 02/12/17 18:31 Dose: 40 meq Departure - Departure Disposition: [facility] Acute Clinical Impression: Hypokalemia, Dehydration Condition: Good
--- NOTE | 2017-02-12 18:11 | CPEKG ---
Heart Rate: 80 RR Interval: 750 P-R Interval: 144 QRSD Interval: 84 QT Interval: 344 QTC Interval: 397 P [place]: 265 QRS [place]: 30 T Wave [place]: 254 EKG Severity - ABNORMAL ECG - EKG Impression: ECTOPIC ATRIAL RHYTHM EKG Impression: ABNORMAL T, CONSIDER ISCHEMIA, DIFFUSE LEADS Electronically Signed By: Juan eLvin 12-Feb-2017 23:12:04
--- NOTE | 2017-02-12 18:34 | CPEKG ---
Heart Rate: 82 RR Interval: 732 P-R Interval: 144 QRSD Interval: 80 QT Interval: 340 QTC Interval: 397 P [place]: 265 QRS [place]: 28 T Wave [place]: 260 EKG Severity - ABNORMAL ECG - EKG Impression: ECTOPIC ATRIAL RHYTHM EKG Impression: NONSPECIFIC T ABNORMALITIES, DIFFUSE LEADS Electronically Signed By: Juan Levin 12-Feb-2017 23:12:04
[2017-02-12 18:54] LABS: ANION GAP 11 mEq/L (8-16); CALCIUM 9.6 mg/dL (8.5-10.4); CARBON DIOXIDE 15 mEq/l (22-31); CHLORIDE 110 mEq/L (97-110); CREATININE 1.4 mg/dL (0.6-1.0); GLOMERULAR FILTRATION RATE 38; GLUCOSE 92 mg/dL (70-100); SODIUM 136 mEq/L (134-144)
[2017-02-12 18:56] LABS: POTASSIUM 2.3 mEq/L (3.5-5.2)
[2017-02-12 19:05] LABS: TROPONIN I 0.022 ng/mL (0.000-0.034)
[2017-02-12] MEDS ORDERED: PROTOCOL POTASSIUM 1 DOSE MISC PRN (19:27)
[2017-02-12] MEDS ORDERED: PROTOCOL MAGNESIUM 1 DOSE IV PRN (19:27)
[2017-02-12 19:53] LABS: POTASSIUM 2.3 mEq/L (3.5-5.2)
--- NOTE | 2017-02-12 20:26 | GHP ---
[f rep st] HISTORY AND PHYSICAL DATE OF ADMISSION: 02/12/2017 HISTORY OF PRESENT ILLNESS: The patient is a pleasant 66-year-old female, with history of mixed conn ective tissue disorder and recent admission for submandibular abscess that grew out Fusobacterium. S he has been followed by Dr. Som Peres, of infectious disease. She was receiving ceftriaxone as an ou tpatient. She developed some rash and some flushing, and then she had some all over hot and cold fla shes. Ceftriaxone was discontinued. She saw Dr. Peres in followup today, and she felt poorly, and wa s not eating or drinking, so she was referred to the emergency department, where some labs were drawn , which showed mild volume depletion, but also showed significant hypokalemia. She has had 1 soft stool per day. No vomiting. She has had poor p.o. intake. She has a typically d ry mouth with her mixed connective tissue disease. She has been eating soup, other things, soft food s. No fever or chills. REVIEW OF SYSTEMS: Complete 10-point review of systems conducted and negative except as in the HPI. PAST MEDICAL HISTORY: Mixed connective tissue disease, on CellCept, she has had associated with this Raynaud's and autoimmune hepatitis. SOCIAL HISTORY: Former smoker. No alcohol. From [place]. . Lives in [place]. Went t o in [place] in 1966. FAMILY HISTORY: Positive for cancer. Brother just of cancer. ALLERGIES: Azathioprine, sulfa, amoxicillin, clavulanic acid, possibly ceftriaxone. MEDICATIONS: Salagen, Keflex, prednisone, Percocet, metronidazole, pilocarpine, CellCept, ibuprofen, ergocalciferol, Tylenol. PHYSICAL EXAMINATION: PRESENTING VITALS: Temp 36.6, blood pressure 135/107, pulse 105; now 84, maria isabel thing 20 times a minute, 99% on room air. GENERAL: No acute distress. HEENT: Sclerae anicteric. Oropharynx clear. Mucous membranes moist. NECK: Supple. No lymphadenopathy or JVD. LUNGS: Clear to auscultation bilaterally. HEART: S1, S2, without murmur. ABDOMEN: Soft, nontender, nondistend ed. LOWER EXTREMITIES: No edema. Calves nontender. SKIN: Without rash. NEUROLOGIC: Nonfocal. LABORATORY DATA: Sodium 136, potassium 2.3, chloride 110, bicarb 15. She appears to run a chronic a cidosis. BUN 32, creatinine 1.4, glucose 92. Troponin is 0.022. White count 8.9, hematocrit 31, pl atelets 139. DIAGNOSTIC STUDIES: EKG, interpreted by me, shows sinus at 80 with normal axis and intervals. There are deep P-wave inversions in leads II, III, F, and then there is T-wave inversion in V4, V5, V6, th is is changed from prior. There are T-wave inversions in I, aVF, lead III, lead II, and the lateral precordial leads. This EKG was repeated and was found to be the same. I discussed the case with Dr. Jovita Monterroso, as well as Bonifacio Garcia, in the emergency department. ASSESSMENT/PLAN: A 66-year-old female who presents with hyperkalemia, vitamin depletion. 1. Hypokalemia. I suspect this is secondary to poor p.o. intake. I will start her on potassium/mag nesium protocol. 2. Volume depletion. I will start her on IV fluids. 3. Unusual P-wave axis. I suspect this is a low atrial ectopic focus. There is no evidence of pleu ral effusion. Her heart sits relatively vertically in her chest. I will go ahead and order an echoc ardiogram. 4. Indeterminate troponin. This is not an unexpected finding, although it is a negative value. I w ill repeat it in the morning. DISPOSITION: Observation status. /[id number]/MODL
[2017-02-12] MEDS ORDERED: ACETAMINOPHEN 325 MG TAB PO PRN (21:44)
[2017-02-12] MEDS ORDERED: IBUPROFEN 800 MG TAB PO PRN (21:44)
[2017-02-12] MEDS ORDERED: PILOCARPINE HCL 5 MG TAB PO PRN (21:44)
[2017-02-12] MEDS: metroNIDAZOLE 500 MG TAB PO SCH (23:19)
[2017-02-13] MEDS: metroNIDAZOLE 500 MG TAB PO SCH (05:45)
[2017-02-13 06:31] LABS: MAGNESIUM 1.9 mg/dL (1.6-2.3)
[2017-02-13 06:34] LABS: POTASSIUM 2.6 mEq/L (3.5-5.2)
[2017-02-13] MEDS ORDERED: POTASSIUM CL 10 MEQ TAB PO ONE ×2 (06:39→10:41)
[2017-02-13 06:43] LABS: TROPONIN I 0.021 ng/mL (0.000-0.034)
[2017-02-13] MEDS ORDERED: ONDANSETRON 4 MG/2 ML VIAL IVP PRN ×2 (07:22)
[2017-02-13] MEDS ORDERED: ACETAMINOPHEN 325 MG TAB PO PRN ×2 (07:22)
[2017-02-13] MEDS ORDERED: ALTEPLASE 2 MG VIAL IVP PRN (07:22)
[2017-02-13] MEDS ORDERED: NS 1,000 ML IV SCH (07:22)
[2017-02-13] MEDS ORDERED: ONDANSETRON DISINTEGRATING 4 MG TAB PO PRN (07:22)
[2017-02-13] MEDS ORDERED: NS W/ 20 KCl/L 1,000 ML IV SCH (07:22)
[2017-02-13] MEDS ORDERED: POTASSIUM CL 20 MEQ PKT PO ONE (08:15)
[2017-02-13] MEDS: MULTIVITAMINS 1 EACH TAB PO SCH (08:38)
[2017-02-13] MEDS: predniSONE 5 MG TAB PO SCH (08:38)
[2017-02-13] MEDS: MYCOPHENOLATE MOFETIL 250 MG CAP PO SCH (08:39)
--- NOTE | 2017-02-13 10:06 | PCMIDPN ---
Assessment/Plan: Assessment/Plan: * Submandibular abscess: Ceftriaxone and metronidazole discontinued due to skin rash and diffuse sense of cold followed by warmth with infusion. Chest x- ray yesterday showed the PICC line remains in good position. Reviewed microbiologic data with laboratory - anaerobic organism identification is still pending at [facility] with automated identification at [facility] not consistent with Actinomyces. Will obtain CT scan of face today to assess integrity of mandible / presence of mandibular osteomyelitis. If not present, plan to discontinue antibiotics as abscess should be resolved at this point in time post incision and drainage. * Hypokalemia: Potassium repletion ongoing. Likely related to decreased oral intake associated with use of antibiotics. Appreciate hospitalist assistance with ongoing patient care. Clinical findings and plan discussed with patient, , nursing staff and Dr. Galvan. 02/13/17 10:02 Subjective: Patient admitted due to significant hypokalemia. Potassium repletion is ongoing. Patient feels stronger this a.m. was able to eat Monegasque toast for breakfast. Objective: Vital Signs Temp Pulse Resp BP Pulse Ox 36.6 C 84 18 119/61 99 02/13/17 07:36 02/13/17 07:36 02/13/17 07:36 02/13/17 07:36 02/13/17 07:36 Laboratory Results 02/13/17 05:55 02/12/17 02/13/17 02/14/17 05:59 05:59 05:59 Intake Total 800 Balance 800 EKG with diffuse T-wave inversions - Physical Exam General Appearance: alert, no apparent distress EENT: other ( Right mandibular region nontender), No scleral icterus, No conjunctival petechiae Respiratory: lungs clear, No respiratory distress Cardiac/Chest: regular rate, rhythm Abdomen: non-tender, No distended Skin: rash ( faint macular rash over her back) ICD10 Worksheet Patient Problems: Problems Problem Status Onset Dehydration Acute Hypokalemia Acute Dyspnea Acute Renal insufficiency Acute Submandibular abscess Acute
[2017-02-13 10:33] LABS: POTASSIUM 3.7 mEq/L (3.5-5.2)
--- NOTE | 2017-02-13 10:52 | CPEKG ---
Heart Rate: 82 RR Interval: 732 P-R Interval: 140 QRSD Interval: 72 QT Interval: 356 QTC Interval: 416 P [place]: 265 QRS [place]: 41 T Wave Fellows: -62 EKG Severity - ABNORMAL ECG - EKG Impression: ECTOPIC ATRIAL RHYTHM EKG Impression: PROBABLE ANTEROSEPTAL INFARCT, AGE INDETERM EKG Impression: BORDERLINE T ABNORMALITIES, INFERIOR LEADS Electronically Signed By: Oziel Garcia 13-Feb-2017 11:21:34
--- NOTE | 2017-02-13 14:09 | PDMN ---
Medical Necessity Medical necessity: GRG systemic condition: hypokalemia not corrected by ED tx, ( 2.3, 2.3, 2.6) with EKG -diffuse T wave inversion noted- ongoing monitoring of EKG and Potassium needed. - mandibular abscess with ongoing tx needed > 2 midnights noted
--- NOTE | 2017-02-13 14:20 | ECHO ---
[email or web address] [address] Main: [phone] Fax: Transthoracic Echocardiogram Name: ROSALEE BAXTER MR#: [id number] Study Date: 02/13/2017 Study Time: 08:34 AM Date of : 1950 Age: 66 year(s) Height: 172.7 cm (68 in.) Weight: 50.8 kg (112 lb.) BSA: 1.6 m2 Gender: Female Examination: Echo Indication: Unusual P wave axis/inverted inferior leads Image Quality: Contrast: Requested by: Guilherme Gan BP: 119 mmHg/61 mmHg Heart Rate: Rhythm: Indication: Unusual P wave axis/inverted inferior leads Procedure Staff Hot Box Checker: Edwina Shaw Reading Physician: Ferny Rubin Requesting Provider: Conclusions: Normal size left ventricle. Global hypercontractility of the left ventricle. EF is 75 %. There is mild calcification of the posterior mitral leaflet. Mild mitral valve regurgitation is present. The aortic valve is tri-leaflet. The pulmonary artery pressure is normal. Measurements: Chambers Valvular Assessment AV/MV Valvular Assessment TV/PV Normal Normal Normal Name Value Range Name Value Range Name Value Range Ao Mara (MM): 2.8 cm (2.2 cm-3.7 AV Vmax: 1.47 m/s (1 m/s-1.7 TR Vmax: 2.59 mm/s ( - ) cm) m/s) TR PGmax: 27 mmHg ( - ) IVSd (2D): 1.0 cm (0.6 cm-1.1 AV maxP mmHg ( - ) syst. PAP: 32 mmHg ( - ) cm) MV E Vmax: 0.71 m/s ( - ) LVDd (2D): 3.8 cm (3.9 cm-5.3 MV A Vmax: 0.79 m/s ( - ) cm) MV E/A: 0.90 ( - ) LVDs (2D): 1.9 cm (2.1 cm-4 cm) LVPWd (2D): 0.8 cm ( - ) LVEF (MOD4): 75 % (>=55 %) Continued Measurements: Chambers Valvular Assessment AV/MV Valvular Assessment TV/PV Name Value Name Value Name Value LADs: 3.2 cm MV E' Septal: 0.07 m/s CVP (est.): 5 mmHg LADs Lon.0 cm MV E/E' Septal: 10.20 LA Area: 15.1 cm2 Patient: ROSALEE BAXTER Study Date: 02/13/2017 Page 1 of 2 08:34 AM MV E/E' Lateral: 8.10 Findings: Left Ventricle: Normal size left ventricle. Global hypercontractility of the left ventricle. EF is 75 %. No regional wall motion abnormality. Grade 1 diastolic dysfunction (abnormal relaxation). Right Ventricle: Normal size right ventricle. Left Atrium: The left atrium is normal in size. Right Atrium: The right atrium is normal in size. Mitral Valve: There is mild calcification of the posterior mitral leaflet. Mild mitral valve regurgitation is present. Aortic Valve: The aortic valve is tri-leaflet. Tricuspid Valve: The tricuspid valve appears normal. Moderate tricuspid regurgitation is present. The pulmonary artery pressure is normal. Pulmonic Valve: The pulmonic valve is normal in appearance. Trivial pulmonic valve regurgitation. Pericardium: Trivial anterior pericardial effusion. (No Signature Object) Patient: ROSALEE BAXTER Study Date: 02/13/2017 Page 2 of 2 08:34 AM [id number]
--- NOTE | 2017-02-13 16:02 | HOSPPROG ---
Hospitalist Progress Note Assessment/Plan: * Hypokalemia - continue repletion -due to poor PO -advance diet and monitor intake off antibiotics * Submandibular abscess - anaerobe -severe side effects due to abx (rash, poor po) -d/w Dr. Peres - possible DC altogether depending on CT result * Wandering atrial pacemaker -ECHO okay * MCTD - continue cellcept and low dose prednisone * h/o autoimmune hepatitis Subjective: Doing better Objective: Vital Signs Temp Pulse Resp BP Pulse Ox 36.6 C 83 18 122/66 H 97 02/13/17 15:03 02/13/17 15:03 02/13/17 15:03 02/13/17 15:03 02/13/17 15:03 Laboratory Results 02/13/17 10:03 02/12/17 02/13/17 02/14/17 05:59 05:59 05:59 Intake Total 800 Balance 800 EKG viewed, my personal interpretation is - still inverted Pwave similar to prior tele reviewed - P wave will vary at times, no tachycardia CT mandible - no osteo case d/w Dr. Peres regarding antibiotic plan - Physical Exam Constitutional: no apparent distress, appears nourished, not in pain Cardiovascular: regular rate and rhythym, no murmur, rub, or gallop Respiratory: no respiratory distress, no rales or rhonchi, clear to auscultation Gastrointestinal: normoactive bowel sounds, soft, non-tender abdomen, no palpable masses Skin: no rashes or abrasions, no fluctuance, no induration Neurologic: AAOx3, sensation intact bilaterally Psychiatric: interacting appropriately, not anxious, not encephalopathic, thought process linear ICD10 Worksheet Patient Problems: Problems Problem Status Onset Dehydration Acute Hypokalemia Acute Dyspnea Acute Renal insufficiency Acute Submandibular abscess Acute
[2017-02-13 19:16] LABS: POTASSIUM 4.1 mEq/L (3.5-5.2)
[2017-02-14 04:57] LABS: % IMMATURE GRANULYOCYTES 0.5 % (0.0-1.1); ABSOLUTE IMMATURE GRANULOCYTES 0.02 10^3/uL (0.00-0.10); ADD DIFF? NO; ADD MORPH? NO; ADD SCAN? NO; ATYPICAL LYMPHOCYTE FLAG 10 (0-99); FRAGMENT RBC FLAG 0 (0-99); HEMATOCRIT 29.9 % (38.0-47.0); HEMOGLOBIN 10.2 g/dL (12.6-16.3); LEFT SHIFT FLG 0 (0-99); LIPEMIA HEMOLYSIS FLAG 90 (0-99); MEAN CELL HEMOGLOBIN CONCENTR. 34.1 g/dL (32.4-36.7); MEAN CELL VOLUME 87.9 fL (81.5-99.8); MEAN PLATELET VOLUME 11.1 fL (8.7-11.7); PLATELET CLUMPS FLAG 0 (0-99); PLATELET COUNT 151 10^3/uL (150-400); RED CELL DISTRIBUTION WIDTH 15.6 % (11.5-15.2)
[2017-02-14 05:08] LABS: ALANINE AMINOTRANSFERASE 22 IU/L (9-52); ALBUMIN 2.6 g/dL (3.5-5.0); ALKALINE PHOSPHATASE 105 IU/L (38-126); ANION GAP 6 mEq/L (8-16); ASPARTATE AMINOTRANSFERASE 19 IU/L (14-46); BILIRUBIN,TOTAL 0.6 mg/dL (0.1-1.4); BILIRUBIN-CONJUGATED 0.3 mg/dL (0.0-0.5); BILIRUBIN-UNCONJUGATED 0.3 mg/dL (0.0-1.1); CALCIUM 9.1 mg/dL (8.5-10.4); CARBON DIOXIDE 14 mEq/l (22-31); CHLORIDE 119 mEq/L (97-110); GLOMERULAR FILTRATION RATE 55; GLUCOSE 82 mg/dL (70-100); POTASSIUM 3.6 mEq/L (3.5-5.2); SODIUM 139 mEq/L (134-144); TOTAL PROTEIN 5.6 g/dL (6.3-8.2)
[2017-02-14] MEDS ORDERED: POTASSIUM CL 10 MEQ TAB PO ONE ×2 (06:47→09:30)
[2017-02-14 08:09] VITALS: BP 130/66; PULSE 91; RESP 23; TEMP 97.9; O2SAT 98
--- NOTE | 2017-02-14 08:44 | CPEKG ---
Heart Rate: 77 RR Interval: 779 P-R Interval: 176 QRSD Interval: 76 QT Interval: 372 QTC Interval: 421 P Limestone: 63 QRS Limestone: 32 T Wave Limestone: 29 EKG Severity - NORMAL ECG - EKG Impression: SINUS RHYTHM Electronically Signed By: Oziel Garcia 14-Feb-2017 12:42:42
[2017-02-14] MEDS: MULTIVITAMINS 1 EACH TAB PO SCH (09:06)
[2017-02-14] MEDS: predniSONE 5 MG TAB PO SCH (09:06)
[2017-02-14] MEDS: MYCOPHENOLATE MOFETIL 250 MG CAP PO SCH (09:08)
[2017-02-14] MEDS ORDERED: POTASSIUM/SODIUM PHOSPHATE 1 PKT PO ONE (10:13)
--- NOTE | 2017-02-14 18:26 | GDS ---
[f rep st] DISCHARGE SUMMARY DISCHARGE DIAGNOSES: 1. Severe hypokalemia due to poor p.o. intake. 2. Anaerobic submandibular abscess. 3. Wandering atrial pacemaker. 4. Mixed connective tissue disease. 5. History of autoimmune hepatitis. HISTORY: The patient is a 66-year-old female, who was recently diagnosed with an anaerobic submandib ular abscess, and she was receiving IV ceftriaxone, IV Flagyl through a PICC line at home. Unfortuna tely, the antibiotics were causing severe side effects, and she was completely unable to eat for a pr olonged period of time. She was admitted to the hospital due to severe hypokalemia due to this poor p.o. intake. Infectious Disease did consult while she was here in the hospital. She had a repeat CT scan of her mandible that showed complete resolution of infection. She has completed 3 weeks of the rapy, and Dr. Peres did not think she needed any further antibiotics post discharge, and they were dis continued, and her PICC line was removed. With discontinuation of her antibiotics, she was able to a dvance her diet and eat more normal quantities. Her electrolytes did improve, and I think they will continue to improve since she is now able to eat a regular diet. Incidentally noted during this hospitalization was ectopic atrial focus consistent with a wandering a trial pacemaker. Some of this might have been worsened by her electrolyte disturbance. On the day o f discharge, she is back to normal sinus rhythm. Echocardiogram was unremarkable. DISCHARGE MEDICATIONS: Please see computer record for full detailed list. There were no new medicat ions given at the time of hospital discharge. Additional oral Flagyl and IV ceftriaxone were both di scontinued. DISCHARGE INSTRUCTIONS: Repeat laboratory work in 1 week to ensure complete normalization. Recommen ded labs are CBC, chem 7, and phosphorus. Greater than 30 minutes of time was spent arranging this discharge. The patient was seen and examine d by me on the day of discharge. /[id number]/MODL
--- NOTE | 2017-02-15 12:47 | ASDISCHSUM ---
Discharge Information Plan Status:Home with No Needs Medically Cleared to Leave:02/14/2017 Discharge Date:02/14/2017 11:45 AM CM D/C Disposition: ADT D/C Disposition:Home, Routine, Self-Care Projected Discharge Date:02/14/2017 12:00 AM Transportation at D/C: Discharge Delay Reason: Follow-Up Date:02/14/2017 12:00 AM Discharge Slot: Final Diagnosis: Placement Information Patient Contact Information Contact Name:JERMAINE Relationship: Address:[address] [place] Alternate Phone: State/Zip Code:[place] [phone] Email: Financial Information Financial Class:HMO and PPO Plans Primary Plan Desc:[facility] Primary Plan Number:[id number] Secondary Plan Desc: Secondary Plan Number: Assessment Information Intervention Information
[2017-02-17] MEDS ORDERED: ERGOCALCIFEROL 50,000 I.UNIT CAP PO SCH (09:00)
== END 2017-02-14 11:45 | disposition home or self-care (01) | DRG 641 ==
LOC: F2W 20:10
PROVIDERS: ADMIT Internal Medicine; ATTEND Internal Medicine
DX: E87.6 Hypokalemia (principal); K12.2 Cellulitis and abscess of mouth; I49.8 Other specified cardiac arrhythmias; M35.1 Other overlap syndromes; K75.4 Autoimmune hepatitis; E86.0 Dehydration; Z87.891 Personal history of nicotine dependence; Z80.9 Family history of malignant neoplasm, unspecified
CPT/HCPCS: 96365; G0378

== ENCOUNTER → 2017-02-12 | Outpatient (CLI) | payer OTHER | LOC: FIMAGING 16:11 | PROVIDERS: ATTEND Internal Medicine Infectious Disease | DX: Z45.2 Encounter for adjustment and management of vascular access device (principal) ==

== ENCOUNTER → 2017-04-01 | Outpatient (CLI) | payer OTHER | LOC: BRMIMAGING 11:14 | PROVIDERS: ATTEND Internal Medicine | DX: K80.20 Calculus of gallbladder without cholecystitis without obstruction (principal); R63.4 Abnormal weight loss | CPT/HCPCS: 76700-PO ==

== ENCOUNTER → 2017-04-09 | Outpatient (CLI) | payer OTHER | LOC: FIMAGING 15:26 | PROVIDERS: ATTEND Internal Medicine | DX: R63.4 Abnormal weight loss (principal) ==

== ENCOUNTER → 2017-04-17 | Outpatient (CLI) | payer OTHER | LOC: FIMAGING 14:45 | PROVIDERS: ATTEND Internal Medicine | DX: K80.20 Calculus of gallbladder without cholecystitis without obstruction (principal); N85.8 Other specified noninflammatory disorders of uterus; M48.061 Spinal stenosis, lumbar region without neurogenic claudication; M53.3 Sacrococcygeal disorders, not elsewhere classified ==

== ENCOUNTER 2017-05-29 14:00 | Inpatient (IN) | payer OTHER ==
[2017-05-29] MEDS ORDERED: NS 1,000 ML IV ONE (15:38)
--- NOTE | 2017-05-29 15:41 | EDPHY ---
H & P Stated Complaint: pt has had a 25lb weight loss over 1 month unknown reason Time Seen by Provider: 05/29/17 15:30 HPI/ROS: CHIEF COMPLAINT: Failure to thrive HISTORY OF PRESENT ILLNESS: The patient is a 67-year-old female who was sent here by her primary Dr. Guerrero for failure to thrive. She has lost 25 lb in the last month which according to her is from poor calorie intake. She denies vomiting or diarrhea. She denies abdominal pain. She denies recent fevers or infections. She was admitted in February after weight loss and hypokalemia from poor intake. At that time she was on antibiotics for dental infection and she was having a lot of side effects or making her not to eat. She has continued the weight loss since that time but it has become more dramatic in the last month. She denies depression. She has not had any bleeding or pain. Her states that she ate 2 egg whites and a piece of tabares for her entire day today. Dr. Guerrero has ordered an upper endoscopy and a vaginal ultrasound for further evaluation but recommended she come here today. She does have a history of Raynaud's disease as well as autoimmune hepatitis, mixed connective tissue disease and history of appendectomy. She states that she feels fine and does not feel sick. REVIEW OF SYSTEMS: Constitutional: denies: chills, fever, recent illness, recent injury EENTM: denies: blurred vision, double vision, nose congestion Respiratory: denies: cough, shortness of breath Cardiac: denies: chest pain, irregular heart rate, lightheadedness, palpitations Gastrointestinal/Abdominal: denies: abdominal pain, diarrhea, nausea, vomiting, blood streaked stools Genitourinary: denies: dysuria, frequency, hematuria, pain Musculoskeletal: denies: joint pain, muscle pain Skin: denies: lesions, rash, jaundice, bruising Neurological: denies: headache, numbness, paresthesia, tingling, dizziness, weakness Hematologic/Lymphatic: denies: blood clots, easy bleeding, easy bruising Immunologic/allergic: denies: HIV/AIDS, transplant EXAM: GENERAL: Well-appearing, thin and in no acute distress. HEAD: Atraumatic, normocephalic. EYES: Pupils equal round and reactive to light, extraocular movements intact, sclera anicteric, conjunctiva are normal. ENT: TMs normal, nares patent, oropharynx clear without exudates. Slightly dry Moist mucous membranes which she states is baseline with a history of dry mouth. NECK: Normal range of motion, supple without lymphadenopathy or JVD. LUNGS: Breath sounds clear to auscultation bilaterally and equal. No wheezes rales or rhonchi. HEART: Regular rate and rhythm without murmurs, rubs or gallops. ABDOMEN: Soft, nontender, normoactive bowel sounds. No guarding, no rebound. No masses appreciated. BACK: No CVA tenderness, no spinal tenderness, step-offs or deformities EXTREMITIES: Normal range of motion, no pitting or edema. No clubbing or cyanosis. NEUROLOGICAL: Cranial nerves II through XII grossly intact. Normal speech, normal gait. 5/5 strength, normal movement in all extremities, normal sensation PSYCH: Normal mood, normal affect. SKIN: Warm, dry, normal turgor, no visible rashes or lesions. Source: Patient, Family Exam Limitations: No limitations - Personal History Current Tetanus Diphtheria and Acellular Pertussis (TDAP): Yes Tetanus Vaccine Date: <5 years - Medical/Surgical History Hx Asthma: No Hx Chronic Respiratory Disease: No Hx Diabetes: No Hx Cardiac Disease: No Hx Renal Disease: No Hx Cirrhosis: No Hx Alcoholism: No Hx HIV/AIDS: No Hx Splenectomy or Spleen Trauma: No Other PMH: Raynaud's, mixed connective tissue disease, appy age 15, R lower tooth extraction with resultant abcess. - Family History Significant Family History: No pertinent family hx - Social History Smoking Status: Former smoker Alcohol Use: Sober Drug Use: None Constitutional: Initial Vital Signs Temperature (C) 36.6 C 05/29/17 14:25 Heart Rate 86 05/29/17 14:25 Respiratory Rate 20 05/29/17 14:25 Blood Pressure 123/59 H 05/29/17 14:25 O2 Sat (%) 97 05/29/17 14:25 O2 Delivery Mode Room Air Allergies/Adverse Reactions: ceftriaxone Allergy (Intermediate, Verified 02/13/17 08:11) Rash azathioprine [From Imuran] Allergy (Mild, Verified 02/12/17 17:28) Rash azathioprine sodium [From Imuran] Allergy (Mild, Verified 02/12/17 17:28) Rash Sulfa (Sulfonamide Antibiotics) Allergy (Mild, Verified 02/12/17 17:28) Rash clavulanic acid [From Augmentin] Allergy (Verified 02/12/17 17:28) Home Medications: Medication Instructions Recorded Ergocalciferol [Vitamin D2 (*)] 50,000 unit PO LONGORIA 10/13/15 Mycophenolate Mofetil [Cellcept] 2,000 mg PO DAILY 10/13/15 Ibuprofen [Motrin (*)] 800 mg PO Q8HRS PRN 01/24/17 Pilocarpine HCl [Salagen 5mg (*)] 5 mg PO QID PRN 01/24/17 Multivitamins [Multivitamin (*)] 1 each PO DAILY 02/12/17 predniSONE 2 mg PO DAILY 05/29/17 Medical Decision Making ED Course/Re-evaluation: The patient again has hypokalemia which I will begin repleteing. She is failure to thrive and is also slightly dehydrated. It is difficult to tell whether this is primary psychiatric or medical. She appears happy and energetic. I will call to admit to the medical service. Differential Diagnosis: Partial list of the Differential diagnosis considered include but were not limited to; failure to thrive, depression, electrolyte abnormality and although unlikely based on the history and physical exam, I also considered infection, head injury, cancer. - Data Points Laboratory Results: Laboratory Results 05/29/17 15:40 05/29/17 15:40 05/29/17 05/29/17 05/29/17 15:40 15:40 15:40 WBC RBC Hgb Hct MCV MCH MCHC RDW Plt Count MPV Neut % (Auto) Lymph % (Auto) Harvey % (Auto) Eos % (Auto) Baso % (Auto) Nucleat RBC Rel Count Absolute Neuts (auto) Absolute Lymphs (auto) Absolute Monos (auto) Absolute Eos (auto) Absolute Basos (auto) Absolute Nucleated RBC Immature Gran % Immature Gran # Sodium 144 mEq/L mEq/L (135-145) Potassium Cancelled 2.9 mEq/L L mEq/L 2.9 mEq/L L mEq/L (3.5-5.2) (3.5-5.2) Chloride 115 mEq/L H mEq/L (97-110) Carbon Dioxide 16 mEq/l L mEq/l (22-31) Anion Gap 13 mEq/L mEq/L (8-16) BUN 27 mg/dL H mg/dL (7-23) Creatinine 1.5 mg/dL H mg/dL (0.6-1.0) Estimated GFR 35 Glucose 93 mg/dL mg/dL (70-100) Calcium 10.7 mg/dL H mg/dL (8.5-10.4) Phosphorus 2.8 mg/dL mg/dL (2.5-4.5) Magnesium 2.0 mg/dL mg/dL (1.6-2.3) Total Bilirubin 0.4 mg/dL mg/dL (0.1-1.4) Conjugated Bilirubin 0.3 mg/dL mg/dL (0.0-0.5) Unconjugated Bilirubin 0.1 mg/dL mg/dL (0.0-1.1) AST 26 IU/L IU/L (14-46) ALT 34 IU/L IU/L (9-52) Alkaline Phosphatase 117 IU/L IU/L (38-126) Total Protein 6.4 g/dL g/dL (6.3-8.2) Albumin 3.5 g/dL g/dL (3.5-5.0) Lipase 118 IU/L IU/L (23-300) PTH Intact 11.1 pg/ml pg/ml (10.8-79.4) Specimen Hemolysis Cancelled 05/29/17 15:40 WBC 5.81 10^3/uL 10^3/uL (3.80-9.50) RBC 3.62 10^6/uL L 10^6/uL (4.18-5.33) Hgb 10.9 g/dL L g/dL (12.6-16.3) Hct 31.7 % L % (38.0-47.0) MCV 87.6 fL fL (81.5-99.8) MCH 30.1 pg pg (27.9-34.1) MCHC 34.4 g/dL g/dL (32.4-36.7) RDW 14.1 % % (11.5-15.2) Plt Count 151 10^3/uL 10^3/uL (150-400) MPV 10.5 fL fL (8.7-11.7) Neut % (Auto) 76.1 % H % (39.3-74.2) Lymph % (Auto) 10.3 % L % (15.0-45.0) Harvey % (Auto) 11.0 % % (4.5-13.0) Eos % (Auto) 1.2 % % (0.6-7.6) Baso % (Auto) 0.7 % % (0.3-1.7) Nucleat RBC Rel Count 0.0 % % (0.0-0.2) Absolute Neuts (auto) 4.42 10^3/uL 10^3/uL (1.70-6.50) Absolute Lymphs (auto) 0.60 10^3/uL L 10^3/uL (1.00-3.00) Absolute Monos (auto) 0.64 10^3/uL 10^3/uL (0.30-0.80) Absolute Eos (auto) 0.07 10^3/uL 10^3/uL (0.03-0.40) Absolute Basos (auto) 0.04 10^3/uL 10^3/uL (0.02-0.10) Absolute Nucleated RBC 0.00 10^3/uL 10^3/uL (0-0.01) Immature Gran % 0.7 % % (0.0-1.1) Immature Gran # 0.04 10^3/uL 10^3/uL (0.00-0.10) Sodium Potassium Chloride Carbon Dioxide Anion Gap BUN Creatinine Estimated GFR Glucose Calcium Phosphorus Magnesium Total Bilirubin Conjugated Bilirubin Unconjugated Bilirubin AST ALT Alkaline Phosphatase Total Protein Albumin Lipase PTH Intact Specimen Hemolysis Medications Given: Potassium Chloride/Sodium Chloride (Ns W/ 20 Kcl/L) 1,000 mls @ 100 mls/hr IV CONT MG Stop: 11/25/17 17:44 Last Admin: 05/29/17 18:44 Dose: 1,000 mls Discontinued Medications Sodium Chloride (Ns) 1,000 mls @ 0 mls/hr IV EDNOW ONE; Wide Open PRN Reason: Protocol Stop: 05/29/17 15:39 Last Admin: 05/29/17 15:44 Dose: 1,000 mls Magnesium Sulfate (Magnesium Sulf 2 Gm (Premix)) 50 mls @ 50 mls/hr IV EDNOW ONE Stop: 05/29/17 17:50 Last Admin: 05/29/17 17:05 Dose: 50 mls Potassium Chloride (Klor-Con) 40 meq PO EDNOW ONE Stop: 05/29/17 16:52 Last Admin: 05/29/17 17:05 Dose: 40 meq Departure - Departure Disposition: [facility] Inpatient Acute Clinical Impression: Hypokalemia, Failure to thrive in adult Condition: Fair
[2017-05-29 15:55] LABS: PLATELET COUNT 151 10^3/uL (150-400)
[2017-05-29] MEDS ORDERED: MAGNESIUM SULF 2 GM/WATER 50 ML IV ONE (16:51)
[2017-05-29] MEDS ORDERED: POTASSIUM CL 20 MEQ TAB PO ONE (16:51)
[2017-05-29] MEDS ORDERED: ONDANSETRON DISINTEGRATING 4 MG TAB PO PRN (17:32)
[2017-05-29] MEDS ORDERED: ONDANSETRON 4 MG/2 ML VIAL IVP PRN (17:32)
[2017-05-29] MEDS ORDERED: ACETAMINOPHEN 325 MG TAB PO PRN (17:32)
[2017-05-29] MEDS ORDERED: PILOCARPINE HCL 5 MG TAB PO PRN (17:33)
[2017-05-29] MEDS ORDERED: IBUPROFEN 800 MG TAB PO PRN (17:33)
[2017-05-29] MEDS ORDERED: PROTOCOL POTASSIUM 1 DOSE MISC PRN (17:42)
[2017-05-29] MEDS ORDERED: PROTOCOL MAGNESIUM 1 DOSE IV PRN (17:42)
--- NOTE | 2017-05-29 18:28 | GHP ---
[f rep st] HISTORY AND PHYSICAL DATE OF ADMISSION: 05/29/2017 CHIEF COMPLAINT: Failure to thrive. HISTORY OF PRESENT ILLNESS: A 67-year-old female with a history of mixed connective tissue disorder on low-dose prednisone. A couple months ago she had a mandibular abscess and required some long-term antibiotics that included clindamycin. She said she lost about 25 pounds during that time. Since t hen, she has been not able to keep it up. Over the last week, she had a little bit more nausea and s ome stomach discomfort, and lost 5 more pounds. She then became more weak and is unable to really ca re for herself currently. She does admit to some loose stools but no voluminous diarrhea. She also has some diffuse abdominal pain at times but not severe. She does have some nausea at times but no v omiting. She eats 2 meals a day and eats less than she did prior to her abscess. She is not having any fevers or chills. She did increase her prednisone to 3 mg daily thinking that it might help, but it has not. REVIEW OF SYSTEMS: A 10-point review of systems was obtained and was otherwise negative. PAST MEDICAL HISTORY: 1. Mixed connective tissue disorder. 2. Raynaud's. 3. Recent mandibular abscess. 4. Sjogren syndrome. 5. Autoimmune hepatitis. 6. Chronic renal insufficiency. SOCIAL HISTORY: . No smoking. FAMILY HISTORY: Parents of lung cancer. Brother of leukemia. PHYSICAL EXAMINATION: VITAL SIGNS: Afebrile. Blood pressure is 109/70, heart rate 75, oxygen satur ation 90% on room air. GENERAL: Cachectic but in no apparent distress. HEENT: Anicteric sclerae. Extraocular muscles intact. Slightly dry mucous membranes. NECK: Supple. No thyromegaly. LUNGS: Good effort. Clear to auscultation bilaterally. CARDIOVASCULAR: Regular rate and rhythm. No murm urs or gallops. ABDOMEN: Positive bowel sounds. Soft, nontender. No rebound or guarding. EXTREMI TIES: No clubbing, cyanosis, or edema. SKIN: Without rash. Warm and intact. NEUROLOGIC: Alert a nd oriented x3. Moving all 4 extremities equally. PSYCH: Normal mood and affect. LABORATORY DATA: White blood cell count 5, hemoglobin 10 (which is baseline for her). Sodium 144, p otassium is low at 2.9 (although she seems to have chronic low-potassium), CO2 16 (this is actually b rodrigue than her normal metabolic acidosis which she seems chronically to have as well), creatinine is 1.5, and calcium is up at 10.7. LFTs are normal. Albumin is 3.5. UA is essentially negative. ASSESSMENT: A 67-year-old female presenting with failure to thrive, hypokalemia, and weight loss aft er a prolonged course of IV antibiotics for a submandibular abscess. 1. Weight loss: Unclear cause at this time. I can imagine that it may be difficult for her to gain weight once she has lost it. Would like to rule out Clostridium difficile colitis since she was on clindamycin. We will get a GI pathogen panel. Her calcium is elevated, and I suspect her albumin wi ll drop with some hydration. We will check a PTH and an ionized calcium in the morning to see if thi s may be contributing. Otherwise, if these are negative, then would probably get Gastroenterology in [facility] for possible endoscopy. We will also check a pancreatic elastase; although, that takes a whil e to come back. 2. Hypokalemia: Will replace. 3. History of mixed connective tissue disorder: We will continue prednisone and CellCept. 4. Raynaud's. 5. Chronic renal insufficiency: She is at her baseline. 6. Anemia: This at her baseline. /[id number]/MODL
[2017-05-29] MEDS: NS W/ 20 KCl/L 1,000 ML IV SCH (18:44)
[2017-05-30] MEDS ORDERED: traMADol 50 MG TAB PO PRN (01:30)
[2017-05-30] MEDS: NS W/ 20 KCl/L 1,000 ML IV SCH (04:38)
[2017-05-30 05:44] LABS: PLATELET COUNT 131 10^3/uL (150-400)
--- NOTE | 2017-05-30 09:02 | PDMN ---
Medical Necessity Medical necessity: GRG systemic condition: adult failure to thrive: hypokalemia , sig wt loss- with persistent Nausea, abd pain, in pt with hx of mixed connective tissue disorder, Raynauds, chronic renal insuff. anemia. Sjogrens syndrome, autoimmune hepatitis, recent mandibular abcess( 2 months ago) with halfway abx tx. H/H 10.9, 9.2, 31.7, 27.6 further eval needed
[2017-05-30] MEDS: predniSONE 1 MG TAB PO SCH (09:16)
[2017-05-30] MEDS: MYCOPHENOLATE MOFETIL PO SCH (09:16)
[2017-05-30] MEDS ORDERED: PROTOCOL K PHOSPHATE 1 DOSE IV PRN (10:05)
--- NOTE | 2017-05-30 14:14 | HOSPPROG ---
Hospitalist Progress Note Assessment/Plan: 67y female with c/o weakness and weight loss. First encounter, chart reviewed. #FTT cont workup #Weight loss multifactorial gi consult ordered, D/W Bersentes consider eating issues dietary consult #Electrolyte imbalance replace follow labs #Abd pain cont evaluation transvaginal US #Hx of mixed connective tissue stable #Dispo unclear, cont evaluation possible DC in 1-2 days if tolerating po Subjective: Feeling ok. Better then yesterday. Still abd pain. Objective: Vital Signs Temp Pulse Resp BP Pulse Ox 36.6 C 73 16 103/53 L 98 05/30/17 07:26 05/30/17 07:26 05/30/17 07:26 05/30/17 07:26 05/30/17 07:26 Laboratory Results 05/30/17 04:21 05/30/17 04:21 05/29/17 05/30/17 05/31/17 05:59 05:59 05:59 Intake Total 1500 Balance 1500 - Physical Exam Constitutional: chronically ill appearing, unkempt, cachectic Eyes: PERRL, anicteric sclera, EOMI Ears, Nose, Mouth, Throat: moist mucous membranes, hearing normal, ears appear normal Cardiovascular: regular rate and rhythym, No JVD, No edema Respiratory: no respiratory distress, reduced air movement, No no rales or rhonchi Gastrointestinal: normoactive bowel sounds, No tenderness, No ascites Skin: warm, normal color, No erythema Musculoskeletal: normal joint ROM, no joint effusions, generalized weakness Neurologic: AAOx3 Psychiatric: interacting appropriately, not anxious, not encephalopathic, thought process linear ICD10 Worksheet Patient Problems: Problems Problem Status Onset Hypokalemia Acute Dyspnea Acute Renal insufficiency Acute Submandibular abscess Acute Dehydration Acute Failure to thrive in adult Acute
--- NOTE | 2017-05-30 16:14 | ASMTCMCOM ---
CM Note CM Note Notes: Pt. is a 67-year-old woman admitted due to Failure to Thrive and hypokalemia. Pt. w/ hx. mixed connective tissue disorder, mandibular abscess in January 2017 when she was hospitlized at [facility], Raynaud's, Sjogren syndrome, autoimmune hepatitis, and chronic renal insufficiency. Alberr met w/ Pt. in room due to hospitalist wondering if Pt. has an eating disorder. Upon questioning, Pt. states that historically she has had a "love" relationship with food and has enjoyed food. States in January 2017 she developed stomach pain she thinks due to the antibiotics she was given for her mandibular abscess. Pt. acknowledges a general unawareness of her body and did not realize intially she was losing so much weight. Pt's told her to come to [facility] this time due to continued weight loss. States very supportive. Pt. characterizes her feelings as "irritated" and "annoyed" by this weight loss problem. Does not feel saddened or anxious. Pt. states she is indeed interested in eating more calories. States her stomach has not been hurting lately while eating. 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 Using a cane temporarily due to weakness. After some discussion, Pt. felt good about looking at her calorie needs as a numbers game like her CPA work. Strongly identifies with being a "numbers person". Plans to track her calories with an application on her phone. Let Pt. know Irene would be here tomorrow and Saturday if she wanted to talk further. Plan for independent d/c to when ready. Date Signed: 05/30/2017 04:13 PM Electronically Signed By:Ashley Cantu LCSW
--- NOTE | 2017-05-30 21:53 | GCON ---
[f rep st] CONSULTATION DATE OF CONSULTATION: 05/30/2017 CHIEF COMPLAINT: Anorexia, weight loss. HISTORY OF PRESENT ILLNESS: Patient is a 67-year-old known to our practice, followed by Dr. Pugh for underlying autoimmune hepatitis, also has mixed connective tissue disorder, who has been having p rogressive weight loss. She states about 30 pounds. She notes that she has overall poor appetite. Sometimes the thought of food will make her feel nauseous with some vague abdominal pain. No GERD sy mptoms but some also vague dysphagia pointing to her neck, but without having to regurgitate food. S he had been treated recently for a tooth abscess with antibiotics. With this, she has had diarrhea w hich is now resolved, but no blood in her stools. No melena. She does take Motrin frequently along with prednisone for underlying autoimmune disorder. Had recent colonoscopy in September 2015 with removal of polyps. ALLERGIES: Include ceftriaxone, Imuran, sulfa and Augmentin. MEDICATIONS: Tylenol, magnesium, Zofran, prednisone, tramadol. Home medications also include Motrin, multivitamins, CellCept and Salagen. PAST MEDICAL HISTORY: Autoimmune hepatitis, mixed connective tissue disorder, Raynaud, recent mandib ular abscess, Sjogren syndrome, chronic renal insufficiency. SOCIAL HISTORY: The patient does not smoke. FAMILY HISTORY: Notable for lung cancer in parents. REVIEW OF SYSTEMS: I performed a complete review of systems which is negative except for the pertine nt positives and negatives noted above in the HPI. PHYSICAL EXAMINATION: VITAL SIGNS: Afebrile at 36.6. BP 103/53. Pulse 73. GENERAL: She is alert and oriented. EYES: No scleral icterus. HENT: No oral lesions. CARDIOVASCULAR: Regular rate an d rhythm. CHEST: Clear to auscultation. ABDOMEN: Scaphoid. Positive bowel sounds. Soft. NEUROL OGIC: Nonfocal. SKIN: No rashes. LABORATORY DATA: BUN and creatinine are 23 and 1.9. Lipase is normal. LFTs are normal with total b ilirubin 0.2, AST 20, ALT 28, alkaline phosphatase 96, albumin low at 2.5. Hematocrit is 27.6. She has mild anemia, which is chronic. White count 4. Platelets 131. ASSESSMENT: 1. Anorexia with vague abdominal pain. 2. Weight loss with failure to thrive. PLAN: The cause of her symptoms are unclear but given that she is on prednisone and NSAIDs, she coul d be at risk for ulcer disease, gastric outlet obstruction. Also consider esophagitis or poor motili ty. The patient does have autoimmune hepatitis, but without signs of cirrhosis on physical exam. Ho puneetver, overall, she would be high risk for endoscopy given her liver disease, mixed connective tissue disorder and chronic medication use. I think given these significant other symptoms that upper endo scopy is warranted. I think this can be done safely with careful monitoring. RECOMMENDATION: Upper endoscopy. As the patient has eaten, we will plan to do this tomorrow after n .p.o. Further recommendations to follow. Thanks for the consult. /[id number]/MODL
[2017-05-31] MEDS: predniSONE 1 MG TAB PO SCH (08:21)
[2017-05-31] MEDS: MYCOPHENOLATE MOFETIL PO SCH (08:23)
--- NOTE | 2017-05-31 11:50 | PDANEPAE ---
ANE History of Present Illness 67 yo F with unexplained weight loss here for EGD ANE Past Medical History - Cardiovascular History Hx Hypertension: No Hx Chest Pain: No - Pulmonary History Hx COPD: No Hx Oxygen in Use at Home: No Hx Sleep Apnea: No Sleep Apnea Screening Result - Last Documented: Negative - Endocrine History Hx Diabetes: No - Other Health History Other Health History: mixed connective tissue disease - Chronic Pain History Chronic Pain: Yes ANE Review of Systems Review of Systems: - Exercise capacity Exercise capacity: >=4 METS ANE Patient History - Allergies Allergies/Adverse Reactions: ceftriaxone Allergy (Intermediate, Verified 02/13/17 08:11) Rash azathioprine [From Imuran] Allergy (Mild, Verified 02/12/17 17:28) Rash azathioprine sodium [From Imuran] Allergy (Mild, Verified 02/12/17 17:28) Rash Sulfa (Sulfonamide Antibiotics) Allergy (Mild, Verified 02/12/17 17:28) Rash clavulanic acid [From Augmentin] Allergy (Verified 02/12/17 17:28) - Home Medications Home medications: home medication list seen and reviewed Home Medications: Ergocalciferol [Vitamin D2 (*)] 50,000 unit PO LONGORIA 10/13/15 [Last Taken 05/26/17] Mycophenolate Mofetil [Cellcept] 2,000 mg PO DAILY 10/13/15 [Last Taken 05/29/17 ] Ibuprofen [Motrin (*)] 800 mg PO Q8HRS PRN 01/24/17 [Last Taken 05/28/17] Pilocarpine HCl [Salagen 5mg (*)] 5 mg PO QID PRN 01/24/17 [Last Taken 1 Week Ago ~05/22/17] Multivitamins [Multivitamin (*)] 1 each PO DAILY 02/12/17 [Last Taken 1 Week Ago ~05/22/17] predniSONE 2 mg PO DAILY 05/29/17 [Last Taken 05/29/17] - NPO status NPO Status: no food or drink >8 hours NPO Since - Liquids (Date): 05/31/17 NPO Since - Liquids (Time): 00:00 NPO Since - Solids (Date): 05/31/17 NPO Since - Solids (Time): 00:00 - Anes Hx Anes Hx: no prior problems - Smoking Hx Smoking Status: Former smoker - Alcohol Use Alcohol Use: Sober - Family Anes Hx Family Anes Hx: none ANE Labs/Vital Signs - Labs Result Diagrams: 05/30/17 04:21 05/31/17 04:14 - Vital Signs Blood Pressure: 115/64 Heart Rate: 77 Respiratory Rate: 16 O2 Sat (%): 95 Height: 172.72 cm Weight: 43.091 kg ANE Physical Exam - Airway Neck exam: FROM Mallampati Score: Class 2 Mouth exam: poor dentition Mouth image: 1 - missing 2 - missing - Pulmonary Pulmonary: no respiratory distress, clear to auscultation - Cardiovascular Cardiovascular: regular rate and rhythym, no murmur, rub, or gallop - ASA Status ASA Status: III ANE Anesthesia Plan Anesthesia Plan: GA with mask Total IV Anesthesia: Yes
[2017-05-31] MEDS ORDERED: LR 1,000 ML IV ONE (11:59)
[2017-05-31] MEDS ORDERED: PROPOFOL/EMULSION 500 MG/50 ML BOTTLE IV ONE (12:05)
[2017-05-31] MEDS ORDERED: NALOXONE HCL 0.4 MG/ML INJ IVP PRN (12:20)
--- NOTE | 2017-05-31 12:26 | GIREPORT ---
[facility] - [facility]oscopy Department Patient Name: Jeanie Parks Procedure Date: 05/31/2017 11:46 AM Patient Type: Inpatient Attending MD/ ER Physician: Linh Jean MD Procedure: Upper GI endoscopy Indications: Epigastric abdominal pain, Anorexia, Weight loss Providers: Linh Jean MD Medicines: Monitored Anesthesia Care Complications: No immediate complications. Description of Procedure: After obtaining informed consent, the endoscope was passed under direct vision. Throughout the procedure, the patient's blood pressure, pulse, and oxygen saturations were monitored continuously. The Endoscope was intro duced through the mouth, and advanced to the second part of duodenum. The [facility] er GI endoscopy was accomplished without difficulty. The patient tolerated th e procedure well. Findings: Mucosal changes including ringed esophagus were found in the middle thi rd of the esophagus. Biopsies were taken with a cold forceps for histology. Estimated blood loss was minimal. Localized mildly erythematous mucosa without bleeding was found in the gastric antrum. Biopsies were taken with a cold forceps for histology. Estimated blood loss was minimal. The examined duodenum was normal. Biopsies for histology were taken wit h a cold forceps for evaluation of celiac disease. Estimated blood loss was minimal. Estimated Blood Loss: Estimated blood loss was minimal. Post Op Diagnosis: - Esophageal mucosal changes. Biopsied. - Erythematous mucosa in the antrum. Biopsied. - Normal examined duodenum. Biopsied. - No clear cause for patient's symptoms Recommendation: - Await pathology results. - Advance diet as tolerated. - [facility]. - Consider gastric emptying test. - Thank you for allowing me to participate in the care of your patient. Attending Participation: I personally performed the entire procedure. Linh Jean MD Linh Jean MD 05/31/2017 12:25:50 PM This report has been signed electronicallyiLnh Jean MD Number of Addenda: 0 Note Initiated On: 05/31/2017 11:46 AM [email or web address]
[2017-05-31 14:12] VITALS: O2SAT 96
[2017-05-31 14:31] VITALS: BP 90/55; PULSE 72; RESP 16; TEMP 98.3
--- NOTE | 2017-05-31 16:32 | POSTANESTH ---
Post Anesthetic Evaluation Cardiovascular Status: Normal, Stable, Similar to Pre-Op Cond Respiratory Status: Normal, Stable, Similar to Pre-op Cond. Level of Consciousness/Mental Status: Can Participate in Eval, Alert and Oriented Pain Control: Adequate, Prn Tx Ordered Nausea/Vomiting Control: Adequate, Prn Tx Ordered Complications Possibly Related to Anesthesia: None Noted
--- NOTE | 2017-05-31 17:57 | GDS ---
[f rep st] DISCHARGE SUMMARY DISCHARGE DIAGNOSES: 1. Failure to thrive. 2. Weight loss. 3. Electrolyte imbalance. 4. Abdominal pain. 5. History of mixed connective tissue disease. PHYSICAL EXAM: GENERAL: The patient is alert. VITAL SIGNS: Afebrile at 36.8, pulse is 72, respira tory rate 16, blood pressure is 90/55. She is saturating 96% on room air. I have seen and evaluated the patient on the day of discharge. HOSPITAL COURSE: The patient is a 67-year-old female who presents with complaints of weakness and we ight loss. She was evaluated and diagnosed with: 1. Failure to thrive. The patient was seen by Social Work during this hospitalization. She has a d esire to be active and will continue working on this in the outpatient setting. 2. Weight loss. This is multifactorial in a patient with chronic disease. She was seen by Dietary during this hospitalization, as well as received a consultation from Gastroenterology. An EGD was pe rformed noting inflammation with biopsies pending at the time of disposition. The patient states fernando t she does not eat much during the day and has been educated and encouraged to increase her caloric i ntake during the day. 3. Electrolyte imbalance. This in the setting of low dietary intake. Her electrolytes have been re placed and repleted. 4. Abdominal pain. Transvaginal ultrasound was performed, that was within normal limits. Abdominal pain has resolved. 5. History of mixed connective tissue disease. She is continued on her previously prescribed home m edications. DISPOSITION: The patient will be discharged home with her , to follow up in the outpatient se tting with her primary care physician, Dr. Guerrero. I have also recommended she follow up with a diet itian in the outpatient setting and keep a count of her caloric intake for further reference. She is in agreement with this plan. DISCHARGE MEDICATIONS: Please refer to EMR form. I have not adjusted the patient's previously presc ribed home medications to the best of my knowledge. FOLLOWUP: Again, will be with her primary care physician, Dr. Som Guerrero. PENDING STUDIES: Include EGD biopsies. I have spent greater than 35 minutes in the care, coordination, and management of the patient's dispo sition. /[id number]/MODL
--- NOTE | 2017-06-01 09:58 | ASDISCHSUM ---
Discharge Information Plan Status:Home with No Needs Medically Cleared to Leave: Discharge Date:05/31/2017 03:42 PM CM D/C Disposition: ADT D/C Disposition:Home, Routine, Self-Care Projected Discharge Date:05/31/2017 03:42 PM Transportation at D/C: Discharge Delay Reason: Follow-Up Date:05/31/2017 03:42 PM Discharge Slot: Final Diagnosis: Placement Information Patient Contact Information Contact Name:JERMAINE Relationship: Address:[address] City:[place] Alternate Phone: [facility]/Zip Code:[place] [phone] Email: Financial Information Financial Class:HMO and PPO Plans Primary Plan Desc:[facility] Primary Plan Number:[id number] Secondary Plan Desc: Secondary Plan Number: Assessment Information [facility] CM Progress Note CM Note CM Note Notes: Pt. is a 67-year-old woman admitted due to Failure to Thrive and hypokalemia. Pt. w/ hx. mixed connective tissue disorder, mandibular abscess in January 2017 when she was hospitlized at [facility], Raynaud's, Sjogren syndrome, autoimmune hepatitis, and chronic renal insufficiency. Irene met w/ Pt. in room due to hospitalist wondering if Pt. has an eating disorder. Upon questioning, Pt. states that historically she has had a "love" relationship with food and has enjoyed food. States in January 2017 she developed stomach pain she thinks due to the antibiotics she was given for her mandibular abscess. Pt. acknowledges a general unawareness of her body and did not realize intially she was losing so much weight. Pt's told her to come to [facility] this time due to continued weight loss. States very supportive. Pt. characterizes her feelings as "irritated" and "annoyed" by this weight loss problem. Does not feel saddened or anxious. Pt. states she is indeed interested in eating more calories. States her stomach has not been hurting lately while eating. 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 Using a cane temporarily due to weakness. After some discussion, Pt. felt good about looking at her calorie needs as a numbers game like her CPA work. Strongly identifies with being a "numbers person". Plans to track her calories with an application on her phone. Let Pt. know Irene would be here tomorrow and Saturday if she wanted to talk further. Plan for independent d/c to when ready. Date Signed: 05/30/2017 04:13 PM Electronically Signed By:Ashley Cantu LCSW Case Management Discharge Plan Note Case Management Discharge Discharge Order Complete? Answers: Yes Discharge Comments Notes: Pt. d/c'ed independently on 05/31/17. Date Signed: 06/01/2017 09:56 AM Electronically Signed By:Ashley Cantu LCSW Intervention Information Intervention Type:*Incorrect Registration Date of Service:05/30/2017 08:38 AM Patient Type:Observation Staff Member:MARIPOSA Levine, Shannan Hours: Discipline: Severity: Comment:
== END 2017-05-31 15:42 | disposition home or self-care (01) | DRG 641 ==
LOC: OBSVTOIN 16:55 → F3E 18:45
PROVIDERS: ADMIT Internal Medicine; ATTEND Internal Medicine
PROC: 0DB98ZX Excision of Duodenum, Via Natural or Artificial Opening Endoscopic, Diagnostic (ICD-10-PCS; principal; 2017-05-31 12:00)
PROC: 0DB28ZX Excision of Middle Esophagus, Via Natural or Artificial Opening Endoscopic, Diagnostic (ICD-10-PCS; principal; 2017-05-31 12:00)
PROC: 0DB68ZX Excision of Stomach, Via Natural or Artificial Opening Endoscopic, Diagnostic (ICD-10-PCS; principal; 2017-05-31 12:00)
DX: E87.6 Hypokalemia (principal); R62.7 Adult failure to thrive; R63.0 Anorexia; E87.8 Other disorders of electrolyte and fluid balance, not elsewhere classified; R63.4 Abnormal weight loss; M35.9 Systemic involvement of connective tissue, unspecified; I73.00 Raynaud's syndrome without gangrene; D64.9 Anemia, unspecified; Z87.891 Personal history of nicotine dependence
CPT/HCPCS: 96365; J2704; J7512